=== PATIENT | male | born 1940 | race Caucasian/White ===

== ENCOUNTER 2017-10-30 11:47 | Emergency (ER) | payer OTHER ==
[~2017-10-30 11:47] MED LIST: ASPI-1005 PO; ATEN100T PO; ATOR40TA71 PO; CLOP75TA32 PO; FURO40TA5 PO; GLIP1TAB6 PO; HYDR-309 PO; OMEP20CA10 PO; RANO500T3 PO; SUMA50TA17 PO; VALS1TAB75 PO
[2017-10-30] MEDS ORDERED: IOPAMIDOL-370 100 ML VIAL IV ONE (12:28)
[2017-10-30 12:39] LABS: BASOPHILS % (AUTO) 0.2 % (0.0-5.0); EOSINOPHILS % (AUTO) 0.2 % (0.0-8.0); HEMATOCRIT 38.4 % (42-54); LYMPHOCYTES % (AUTO) 12.3 % (21.0-51.0); MEAN CORPUSCULAR HEMOGLOBIN 33.1 pg (27.0-33.0); MEAN CORPUSCULAR HGB CONC 33.9 g/dL (32.0-36.0); MEAN CORPUSCULAR VOLUME 97.8 fL (79-99); MONOCYTES % (AUTO) 5.2 % (3.0-13.0); NEUTROPHILS % (AUTO) 82.1 % (40.0-77.0); PLATELET COUNT (AUTO) 161 K/uL (130-400); RED BLOOD CELL COUNT(AUTO) 3.93 MIL/uL (4.50-6.20); RED CELL DISTRIBUTION WIDTH 13.4 % (11.0-15.5); WHITE BLOOD COUNT (AUTO) 6.7 K/uL (4.8-10.8)
[2017-10-30 12:50] LABS: CREATININE 1.3 mg/dL (0.5-1.5); POTASSIUM 4.1 mmol/L (3.5-5.1)
[2017-10-30 12:55] LABS: ALBUMIN 3.7 g/dL (3.5-5.0); BILIRUBIN,TOTAL 0.4 mg/dL (0.2-1.0); TOTAL PROTEIN, SERUM 6.5 g/dL (6.0-8.3)
[2017-10-30 13:31] LABS: INR 1.15 (0.85-1.15); PARTIAL THROMBOPLASTIN TIME 29.6 SEC (26.3-35.5)
[2018-01-23] MEDS ORDERED: SPIR25TA4 PO (01:04)
[2018-03-31] MEDS ORDERED: OMEP-272 PO (11:15)
[2018-03-31] MEDS ORDERED: ALPR0.255 PO (11:15)
== END 2017-10-30 14:14 | disposition home or self-care (01) ==
LOC: EDH 11:47
DX: S20.212A Contusion of left front wall of thorax, initial encounter (principal); S30.1XXA Contusion of abdominal wall, initial encounter; I10 Essential (primary) hypertension; Z95.1 Presence of aortocoronary bypass graft; Z95.0 Presence of cardiac pacemaker; W17.89XA Other fall from one level to another, initial encounter; Y93.89 Activity, other specified; Y92.89 Other specified places as the place of occurrence of the external cause; Y99.8 Other external cause status
CPT/HCPCS: 36415; 70450; 71260; 72125; 74177; 80053; 85025; 85610; 85730; 93005; 99285; Q9967

== ENCOUNTER → 2017-11-18 | Outpatient (CLI) | payer OTHER ==
[~2017-11-18] MED LIST changes: +ALPR0.255 PO; +METR500T PO; +OMEP-272 PO; +RIVA20TA PO; +SPIR25TA4 PO; +TAMS-1 PO; +[UNRECOGNIZED DRUG - OTHER] PO
== END | disposition home or self-care (01) ==
LOC: RAH 13:09
PROVIDERS: ATTEND Family Medicine
DX: S09.90XA Unspecified injury of head, initial encounter (principal); G31.9 Degenerative disease of nervous system, unspecified; X58.XXXA Exposure to other specified factors, initial encounter; Y93.89 Activity, other specified; Y92.89 Other specified places as the place of occurrence of the external cause; Y99.8 Other external cause status
CPT/HCPCS: 70450

== ENCOUNTER 2018-01-22 12:35 | Observation (INO) | payer OTHER ==
[~2018-01-22] VITALS: Ht 175.3 cm; Wt 98.0 kg
[~2018-01-22 12:35] MED LIST changes: -ALPR0.255 PO; -METR500T PO; -OMEP-272 PO; -RIVA20TA PO; -SPIR25TA4 PO; -TAMS-1 PO; -[UNRECOGNIZED DRUG - OTHER] PO
[2018-01-22 13:27] LABS: BASOPHILS % (AUTO) 0.2 % (0.0-5.0); EOSINOPHILS % (AUTO) 0.3 % (0.0-8.0); HEMATOCRIT 33.3 % (42-54); LYMPHOCYTES % (AUTO) 8.3 % (21.0-51.0); MEAN CORPUSCULAR HEMOGLOBIN 35.7 pg (27.0-33.0); MEAN CORPUSCULAR VOLUME 99.2 fL (79-99); MONOCYTES % (AUTO) 11.6 % (3.0-13.0); NEUTROPHILS % (AUTO) 79.6 % (40.0-77.0); NUCLEATED RED BLOOD CELLS 0.1 % (0.0-0.19); PLATELET COUNT (AUTO) 157 K/uL (130-400); RED BLOOD CELL COUNT(AUTO) 3.35 MIL/uL (4.50-6.20); RED CELL DISTRIBUTION WIDTH 14.3 % (11.0-15.5); WHITE BLOOD COUNT (AUTO) 8.8 K/uL (4.8-10.8)
[2018-01-22] MEDS ORDERED: DIATR MEGLU/DIATRIZOATE SODIUM 30 ML BOTTLE ONE (13:27)
[2018-01-22 13:39] LABS: POTASSIUM 4.5 mmol/L (3.5-5.1)
[2018-01-22 13:44] LABS: ALBUMIN 3.5 g/dL (3.5-5.0); BILIRUBIN,TOTAL 0.6 mg/dL (0.2-1.0); TOTAL PROTEIN, SERUM 6.8 g/dL (6.0-8.3)
[2018-01-22 13:57] LABS: INR 1.11 (0.85-1.15); PARTIAL THROMBOPLASTIN TIME 30.3 SEC (26.3-35.5); PROTHROMBIN TIME 11.4 SEC (9.6-11.6)
[2018-01-22 13:58] LABS: B-TYPE NATRIURETIC PEPTIDE 422 pg/mL (0-100)
[2018-01-22] MEDS ORDERED: MAG HYDROX/AL HYDROX/SIMETH ES 30 ML SUSP UDCUP PO PRN (14:15)
[2018-01-22] MEDS ORDERED: POTASSIUM CHLORIDE 20MEQ/100ML 100 ML IV PRN (14:15)
[2018-01-22] MEDS ORDERED: HYDRALAZINE HCL 20 MG/ML VIAL IV PRN (14:15)
[2018-01-22] MEDS ORDERED: MORPHINE SULFATE 4 MG/1ML SYG IV PRN (14:15)
[2018-01-22] MEDS ORDERED: POTASSIUM CHLORIDE 20 MEQ ERTAB PO PRN (14:15)
[2018-01-22] MEDS ORDERED: LIDOCAINE HCL-MPF 1% 2ML VIAL IVP PRN (14:15)
[2018-01-22] MEDS ORDERED: MORPHINE SULFATE 2 MG/ML 1ML SYG IV PRN (14:15)
[2018-01-22] MEDS ORDERED: NITROGLYCERIN 0.4 MG SL TAB SL PRN (14:15)
[2018-01-22] MEDS ORDERED: ACETAMINOPHEN 325 MG TAB PO PRN ×2 (14:15)
[2018-01-22] MEDS ORDERED: ONDANSETRON HCL 4 MG/2 ML VIAL IV PRN (14:15)
[2018-01-22] MEDS ORDERED: POTASSIUM CHLORIDE 10% ELIXIR 20 MEQ/15 ML UDCUP PO PRN (14:15)
[2018-01-22] MEDS ORDERED: ACETAMINOPHEN-CODEINE 300/30MG TAB PO PRN ×2 (14:15)
[2018-01-22] MEDS ORDERED: GUAIFENESIN-DM 200/20 MG 10 ML PO PRN (14:15)
[2018-01-22] MEDS ORDERED: LACTULOSE 20 GM/30 ML UDCUP PO PRN (14:15)
[2018-01-22 14:44] LABS: AMYLASE 32 U/L (25-115); LIPASE 119 U/L (114-286)
[2018-01-22 16:00] VITALS: BP 129/82
[2018-01-22] MEDS: INSULIN HUMULIN R 100 UNIT/ML 3ML SQ SCH ×2 (16:30→20:38)
[2018-01-22] MEDS ORDERED: SODIUM CHLORIDE 0.9% 1000ML 1,000 ML IV ONE (18:57)
[2018-01-22] MEDS: SIMETHICONE 80 MG TAB.CHEW PO SCH ×2 (19:01→20:38)
[2018-01-22] MEDS: METRONIDAZOLE 500MG/100ML BAG 100 ML IV SCH ×2 (19:01→19:51)
[2018-01-22] MEDS: LEVOFLOXACIN 500 MG/D5W 100 ML 100 ML IV SCH (19:01)
[2018-01-22 19:05] VITALS: BP 144/91
[2018-01-22] MEDS: FAMOTIDINE 20MG TAB 20 MG TAB PO SCH (20:38)
[2018-01-22] MEDS: RANOLAZINE 500 MG TAB.SR.12H PO SCH (20:38)
[2018-01-22 23:10] VITALS: BP 142/83
[2018-01-23] MEDS ORDERED: TAMS-1 PO (01:01)
[2018-01-23] MEDS ORDERED: SPIR25TA6 PO (01:04)
[2018-01-23] MEDS ORDERED: RIVA20TA PO (01:04)
[2018-01-23] MEDS ORDERED: [UNRECOGNIZED DRUG - OTHER] PO (01:04)
[2018-01-23 03:10] VITALS: BP 121/71
[2018-01-23] MEDS: INSULIN HUMULIN R 100 UNIT/ML 3ML SQ SCH ×4 (06:22→21:00)
[2018-01-23] MEDS: METRONIDAZOLE 500MG/100ML BAG 100 ML IV SCH ×3 (06:48→22:13)
[2018-01-23 08:00] VITALS: BP 140/87
[2018-01-23] MEDS ORDERED: CLOPIDOGREL BISULFATE 75 MG TAB PO SCH (09:00)
[2018-01-23] MEDS: RANOLAZINE 500 MG TAB.SR.12H PO SCH ×2 (09:03→20:23)
[2018-01-23] MEDS: SIMETHICONE 80 MG TAB.CHEW PO SCH ×4 (09:03→20:23)
[2018-01-23] MEDS: FAMOTIDINE 20MG TAB 20 MG TAB PO SCH ×2 (09:03→20:23)
[2018-01-23] MEDS: ASPIRIN 81MG TAB.CHEW PO SCH (09:03)
[2018-01-23 09:28] LABS: APPEARANCE,URINE Clear (CLEAR); BILIRUBIN,URINE Negative (NEGATIVE); COLOR,URINE Yellow (YELLOW); GLUCOSE, URINE (UA) 250 mg/dL (NEGATIVE); KETONES,URINE Trace mg/dL (NEGATIVE); LEUKOCYTE ESTERASE ,URINE Negative (NEGATIVE); NITRATE,URINE Negative (NEGATIVE); OCCULT BLOOD,URINE Negative (NEGATIVE); PROTEIN,URINE Trace (NEGATIVE); UROBILINOGEN,URINE 0.2 mg/dL (0.2-1.0)
[2018-01-23 09:41] LABS: BACTERIA,URINE Rare /HPF (None Seen); RBC,URINE 0-1 /HPF (0-1); SQUAMOUS EPITHELIAL CELL,UR Rare /HPF (0-2); WBC,URINE 0-1 /HPF (0-1)
[2018-01-23 10:07] LABS: HEMATOCRIT 33.9 % (42-54); MEAN CORPUSCULAR HEMOGLOBIN 34.1 pg (27.0-33.0); MEAN CORPUSCULAR HGB CONC 34.4 g/dL (32.0-36.0); MEAN CORPUSCULAR VOLUME 99.1 fL (79-99); PLATELET COUNT (AUTO) 129 K/uL (130-400); RED BLOOD CELL COUNT(AUTO) 3.43 MIL/uL (4.50-6.20); RED CELL DISTRIBUTION WIDTH 14.1 % (11.0-15.5); WHITE BLOOD COUNT (AUTO) 7.7 K/uL (4.8-10.8)
[2018-01-23] MEDS ORDERED: SUMATRIPTAN SUCCINATE 25 MG TABLET PO PRN (10:45)
[2018-01-23 12:00] VITALS: BP 143/77
[2018-01-23] MEDS: LEVOFLOXACIN 500 MG/D5W 100 ML 100 ML IV SCH (15:09)
[2018-01-23 16:00] VITALS: BP 155/81
[2018-01-23 19:45] VITALS: BP 141/90
[2018-01-23] MEDS: ATENOLOL 50 MG TABLET PO SCH (20:22)
[2018-01-23] MEDS: GLIPIZIDE 5 MG TABLET PO SCH (20:23)
[2018-01-23] MEDS: METFORMIN HCL 500 MG TABLET PO SCH (20:23)
[2018-01-23] MEDS: SPIRONOLACTONE 25 MG TAB PO SCH (20:23)
[2018-01-23] MEDS ORDERED: ATORVASTATIN CALCIUM 40 MG TABLET PO SCH (21:00)
[2018-01-23 23:30] VITALS: BP 134/82
[2018-01-24 03:59] VITALS: BP 128/82
[2018-01-24] MEDS: METRONIDAZOLE 500MG/100ML BAG 100 ML IV SCH (05:17)
[2018-01-24] MEDS: INSULIN HUMULIN R 100 UNIT/ML 3ML SQ SCH (06:26)
[2018-01-24 08:00] VITALS: BP 139/88
[2018-01-24] MEDS ORDERED: [UNRECOGNIZED DRUG - OTHER] PO SCH (08:00)
[2018-01-24] MEDS: GLIPIZIDE 5 MG TABLET PO SCH (08:59)
[2018-01-24] MEDS ORDERED: TAMSULOSIN HCL 0.4 MG CAP.ER.24H PO SCH (09:00)
[2018-01-24] MEDS ORDERED: FUROSEMIDE 40 MG TABLET PO SCH (09:00)
[2018-01-24] MEDS ORDERED: RIVAROXABAN 20 MG TABLET PO SCH (09:00)
[2018-01-24 09:01] VITALS: BP 139/88
[2018-01-24] MEDS: ATENOLOL 50 MG TABLET PO SCH (09:01)
[2018-01-24] MEDS: METFORMIN HCL 500 MG TABLET PO SCH (09:02)
[2018-01-24] MEDS: SPIRONOLACTONE 25 MG TAB PO SCH (09:02)
[2018-01-24] MEDS: SIMETHICONE 80 MG TAB.CHEW PO SCH (09:02)
[2018-01-24] MEDS: RANOLAZINE 500 MG TAB.SR.12H PO SCH (09:02)
[2018-01-24] MEDS: FAMOTIDINE 20MG TAB 20 MG TAB PO SCH (09:02)
[2018-01-24] MEDS: ASPIRIN 81MG TAB.CHEW PO SCH (09:02)
[2018-01-24] MEDS ORDERED: METR500T PO (09:53)
[2018-03-31] MEDS ORDERED: OMEP-272 PO (11:15)
[2018-03-31] MEDS ORDERED: ALPR0.255 PO (11:15)
== END 2018-01-24 12:15 | disposition home or self-care (01) ==
LOC: EDH 12:35 → EDHIP 13:08 → 3BH 14:38
PROVIDERS: ADMIT Internal Medicine; ATTEND Internal Medicine
DX: R19.7 Diarrhea, unspecified (principal); I25.5 Ischemic cardiomyopathy; I48.2 Chronic atrial fibrillation; E78.5 Hyperlipidemia, unspecified; E11.9 Type 2 diabetes mellitus without complications; I11.0 Hypertensive heart disease with heart failure; I50.9 Heart failure, unspecified; I25.10 Atherosclerotic heart disease of native coronary artery without angina pectoris; K21.9 Gastro-esophageal reflux disease without esophagitis; Z87.442 Personal history of urinary calculi; Z95.1 Presence of aortocoronary bypass graft; Z95.810 Presence of automatic (implantable) cardiac defibrillator; Z79.01 Long term (current) use of anticoagulants; Z82.49 Family history of ischemic heart disease and other diseases of the circulatory system; Z83.3 Family history of diabetes mellitus
CPT/HCPCS: 36415 ×2; 71045; 74176; 80053; 81001; 82150; 82948 ×8; 83690; 83880; 85025; 85027; 85610; 85730; 87507; 93005; 96365; 96366 ×3; 96368; 96375; 97161; 99285; G0378 ×47; G8978; G8979; G8980; G8981; G8982; G8983; J1815; J1956 ×2; J2270; J3490 ×5; J7030; Q9963

== ENCOUNTER → 2018-03-23 | Outpatient (CLI) | payer OTHER ==
[~2018-03-23] MED LIST changes: +ALPR0.255 PO; -CLOP75TA32 PO; +METR500T PO; +OMEP-272 PO; -OMEP20CA10 PO; +RIVA20TA PO; +SPIR25TA6 PO; +TAMS-1 PO; -VALS1TAB75 PO; +[UNRECOGNIZED DRUG - OTHER] PO
== END | disposition home or self-care (01) ==
LOC: SLP 20:40
PROVIDERS: ATTEND Internal Medicine Cardiovascular Disease
DX: G47.33 Obstructive sleep apnea (adult) (pediatric) (principal)
CPT/HCPCS: 95810

== ENCOUNTER 2018-04-01 07:53 | Day surgery (SDC) | payer OTHER ==
[~2018-04-01] VITALS: Ht 175.3 cm; Wt 93.2 kg
[~2018-04-01 07:53] MED LIST changes: -ASPI-1005 PO; -METR500T PO; +SODIUM CHLORIDE 0.9% 1000ML 1,000 ML IV ONE; -[UNRECOGNIZED DRUG - OTHER] PO
[2018-04-01 08:54] VITALS: BP 138/85
[2018-04-01 11:42] VITALS: BP 129/85
== END 2018-04-01 12:30 | disposition home or self-care (01) ==
LOC: DAH 07:53 → ENDO 07:53
PROVIDERS: ATTEND Internal Medicine Gastroenterology
DX: D12.2 Benign neoplasm of ascending colon (principal); K57.30 Diverticulosis of large intestine without perforation or abscess without bleeding; K56.2 Volvulus; K64.1 Second degree hemorrhoids; K21.0 Gastro-esophageal reflux disease with esophagitis; Z86.010 Personal history of colon polyps; I25.10 Atherosclerotic heart disease of native coronary artery without angina pectoris; Z68.41 Body mass index [BMI] 40.0-44.9, adult; E78.5 Hyperlipidemia, unspecified; I10 Essential (primary) hypertension; N40.0 Benign prostatic hyperplasia without lower urinary tract symptoms; E11.9 Type 2 diabetes mellitus without complications; Z95.0 Presence of cardiac pacemaker; Z79.84 Long term (current) use of oral hypoglycemic drugs; Z79.899 Other long term (current) drug therapy
CPT/HCPCS: 43239; 45385; 82948 ×2; 88305; 88312; 93005; A4606; J7030

== ENCOUNTER → 2018-04-13 | Outpatient (CLI) | payer OTHER ==
[~2018-04-13] MED LIST changes: -SODIUM CHLORIDE 0.9% 1000ML 1,000 ML IV ONE
== END | disposition home or self-care (01) ==
LOC: SLP 20:45
PROVIDERS: ATTEND Internal Medicine Cardiovascular Disease
DX: G47.33 Obstructive sleep apnea (adult) (pediatric) (principal)
CPT/HCPCS: 95811

== ENCOUNTER → 2018-06-30 | Outpatient (CLI) | payer OTHER | END | disposition home or self-care (01) | LOC: SHCH 07:56 | PROVIDERS: ATTEND Internal Medicine Cardiovascular Disease | DX: K55.059 Acute (reversible) ischemia of intestine, part and extent unspecified (principal); N40.0 Benign prostatic hyperplasia without lower urinary tract symptoms; Z72.89 Other problems related to lifestyle; E11.9 Type 2 diabetes mellitus without complications; I11.0 Hypertensive heart disease with heart failure; I50.9 Heart failure, unspecified; E78.5 Hyperlipidemia, unspecified | CPT/HCPCS: 93975 ==

== ENCOUNTER → 2018-10-01 | Outpatient (CLI) | payer OTHER ==
[~2018-10-01] MED LIST changes: -HYDR-309 PO; +HYDR-4457 PO
== END | disposition home or self-care (01) ==
LOC: RAH 09:26
PROVIDERS: ATTEND Internal Medicine Gastroenterology
DX: N28.1 Cyst of kidney, acquired (principal); Z72.89 Other problems related to lifestyle
CPT/HCPCS: 76700; 78264; A9541

== ENCOUNTER → 2019-01-08 | Outpatient (CLI) | payer OTHER ==
[2019-01-08 12:19] LABS: CREATININE 1.1 mg/dL (0.5-1.5)
== END | disposition home or self-care (01) ==
LOC: RAH 10:08
PROVIDERS: ATTEND Internal Medicine Gastroenterology
DX: R10.13 Epigastric pain (principal); R11.0 Nausea
CPT/HCPCS: 36415; 74240; 82565; 84520

== ENCOUNTER → 2019-01-15 | Outpatient (CLI) | payer OTHER ==
[~2019-01-15] MED LIST changes: +IOHEXOL-350 50ML VIAL IV ONE
== END | disposition home or self-care (01) ==
LOC: RAH 08:48
PROVIDERS: ATTEND Internal Medicine Gastroenterology
DX: N28.1 Cyst of kidney, acquired (principal); N20.0 Calculus of kidney; K57.30 Diverticulosis of large intestine without perforation or abscess without bleeding; K40.90 Unilateral inguinal hernia, without obstruction or gangrene, not specified as recurrent; I51.7 Cardiomegaly; Z95.0 Presence of cardiac pacemaker
CPT/HCPCS: 74178; Q9967

== ENCOUNTER → 2019-03-09 | Outpatient (CLI) | payer OTHER ==
[~2019-03-09] MED LIST changes: +IOHEXOL 350 MG/ML 100ML INFUS..BTL IV ONE; -IOHEXOL-350 50ML VIAL IV ONE
== END | disposition home or self-care (01) ==
LOC: RAH 08:29
PROVIDERS: ATTEND Internal Medicine Cardiovascular Disease
DX: K80.20 Calculus of gallbladder without cholecystitis without obstruction (principal); N20.0 Calculus of kidney; K40.90 Unilateral inguinal hernia, without obstruction or gangrene, not specified as recurrent; K57.90 Diverticulosis of intestine, part unspecified, without perforation or abscess without bleeding; M51.35 Other intervertebral disc degeneration, thoracolumbar region; K42.9 Umbilical hernia without obstruction or gangrene; I51.7 Cardiomegaly; N28.1 Cyst of kidney, acquired; M47.815 Spondylosis without myelopathy or radiculopathy, thoracolumbar region; I25.10 Atherosclerotic heart disease of native coronary artery without angina pectoris; I25.5 Ischemic cardiomyopathy; Z95.5 Presence of coronary angioplasty implant and graft
CPT/HCPCS: 74174; Q9967

== ENCOUNTER → 2019-07-05 | Outpatient (CLI) | payer OTHER ==
[~2019-07-05] MED LIST changes: -IOHEXOL 350 MG/ML 100ML INFUS..BTL IV ONE
== END | disposition home or self-care (01) ==
LOC: RAH 13:26
PROVIDERS: ATTEND Family Medicine
DX: G31.89 Other specified degenerative diseases of nervous system (principal)
CPT/HCPCS: 70450

== ENCOUNTER → 2019-11-16 | Outpatient (CLI) | payer OTHER | END | disposition home or self-care (01) | LOC: SHCH 14:44 | PROVIDERS: ATTEND Internal Medicine Cardiovascular Disease | DX: I08.3 Combined rheumatic disorders of mitral, aortic and tricuspid valves (principal); I10 Essential (primary) hypertension | CPT/HCPCS: 93306; 93356 ==

== ENCOUNTER → 2019-12-20 | Outpatient (CLI) | payer OTHER | END | disposition home or self-care (01) | LOC: RAH 13:11 | PROVIDERS: ATTEND Physical Medicine & Rehabilitation | DX: M47.816 Spondylosis without myelopathy or radiculopathy, lumbar region (principal); M25.78 Osteophyte, vertebrae; I70.90 Unspecified atherosclerosis | CPT/HCPCS: 72131 ==

== ENCOUNTER 2019-12-26 17:53 | Emergency (ER) | payer OTHER ==
[~2019-12-26] VITALS: Ht 175.3 cm; Wt 89.4 kg
[2019-12-26] MEDS ORDERED: SODIUM CHLORIDE 0.9% 500ML 500 ML IV ONE (18:35)
[2019-12-26] MEDS ORDERED: PROCHLORPERAZINE EDISYLATE 10 MG/2 ML VIAL ONE (18:35)
[2019-12-26] MEDS ORDERED: DiphenhydrAMINE HCL 50 MG/ML VIAL ONE (18:35)
[2019-12-26 19:26] LABS: BASOPHILS % (AUTO) 0.3 % (0.0-5.0); EOSINOPHILS % (AUTO) 0.8 % (0.0-8.0); HEMATOCRIT 38.8 % (42-54); LYMPHOCYTES % (AUTO) 12.1 % (21.0-51.0); MEAN CORPUSCULAR HEMOGLOBIN 32.9 pg (27.0-33.0); MEAN CORPUSCULAR HGB CONC 33.2 g/dL (32.0-36.0); MONOCYTES % (AUTO) 8.5 % (3.0-13.0); NEUTROPHILS % (AUTO) 77.9 % (40.0-77.0); PLATELET COUNT (AUTO) 156 K/uL (130-400); RED BLOOD CELL COUNT(AUTO) 3.92 MIL/uL (4.50-6.20); RED CELL DISTRIBUTION WIDTH 13.3 % (11.0-15.5); WHITE BLOOD COUNT (AUTO) 7.1 K/uL (4.8-10.8)
[2019-12-26 19:37] LABS: CREATININE 1.1 mg/dL (0.5-1.5); POTASSIUM 4.3 mmol/L (3.5-5.1)
[2019-12-26 19:41] LABS: ALBUMIN 3.6 g/dL (3.5-5.0); BILIRUBIN,TOTAL 0.3 mg/dL (0.2-1.0); TOTAL PROTEIN, SERUM 6.6 g/dL (6.0-8.3)
[2019-12-26] MEDS ORDERED: VALPROIC ACID (AS SODIUM SALT) 500 MG in SODIUM CHLORIDE 0.9% 100 ML IV SCH (20:30)
== END 2019-12-26 21:52 | disposition home or self-care (01) ==
LOC: EDH 17:53
DX: G44.009 Cluster headache syndrome, unspecified, not intractable (principal); I10 Essential (primary) hypertension; Z90.49 Acquired absence of other specified parts of digestive tract; Z95.0 Presence of cardiac pacemaker
CPT/HCPCS: 36415; 70450; 80053; 85025; 96365; 96375; 99284; J0780; J1200; J7040

== ENCOUNTER 2020-10-04 08:00 | Day surgery (SDC) | payer OTHER ==
[2020-09-28 12:29] LABS: APPEARANCE,URINE Clear (CLEAR); BILIRUBIN,URINE Negative (NEGATIVE); COLOR,URINE Yellow (YELLOW); GLUCOSE, URINE (UA) TRACE mg/dL (NEGATIVE); KETONES,URINE Negative (NEGATIVE); LEUKOCYTE ESTERASE ,URINE Negative (NEGATIVE); NITRATE,URINE Negative (NEGATIVE); OCCULT BLOOD,URINE Negative (NEGATIVE); PROTEIN,URINE Negative (NEGATIVE); UROBILINOGEN,URINE 0.2 mg/dL (0.2-1.0)
[2020-09-28 12:30] LABS: BASOPHILS % (AUTO) 0.1 % (0.0-5.0); EOSINOPHILS % (AUTO) 1.5 % (0.0-8.0); HEMATOCRIT 40.8 % (42-54); LYMPHOCYTES % (AUTO) 14.7 % (21.0-51.0); MEAN CORPUSCULAR HEMOGLOBIN 32.4 pg (27.0-33.0); MEAN CORPUSCULAR HGB CONC 32.6 g/dL (32.0-36.0); MEAN CORPUSCULAR VOLUME 99.3 fL (79-99); MONOCYTES % (AUTO) 9.7 % (3.0-13.0); NEUTROPHILS % (AUTO) 73.9 % (40.0-77.0); PLATELET COUNT (AUTO) 179 K/uL (130-400); RED BLOOD CELL COUNT(AUTO) 4.11 MIL/uL (4.50-6.20); WHITE BLOOD COUNT (AUTO) 6.7 K/uL (4.8-10.8)
[2020-09-28 12:36] LABS: BACTERIA,URINE Rare /HPF (None Seen); RBC,URINE 0-1 /HPF (0-1); SQUAMOUS EPITHELIAL CELL,UR Rare /HPF (0-2); WBC,URINE 0-1 /HPF (0-1)
[2020-09-28 12:48] LABS: INR 0.92 (0.85-1.15); PARTIAL THROMBOPLASTIN TIME 24.6 SEC (26.3-35.5)
[2020-09-28 12:51] LABS: CREATININE 1.1 mg/dL (0.5-1.5); POTASSIUM 5.4 mmol/L (3.5-5.1)
--- NOTE | 2020-10-02 10:20 | NUR ---
LABS 5.4 POTASSIUM REPORTED TO VINEET OBREGON,NO FURTHER ORDERS GIVEN. INFORMED SUSIE THAT PT TOOK XARELTO THIS AM. PER SUSIE RESCHEDULE [facility] FOR Fri10-04-20 , PT MADE AWARE AND INSTRUCTED TO STOP XARELTO IMMEDIATELY, HE VERBALIZED UNDERSTANDING
[2020-10-04] VITALS (14 sets, daily range): BP systolic 124–165; BP diastolic 75–94
[~2020-10-04] VITALS: Ht 172.7 cm; Wt 90.1 kg
[~2020-10-04 08:00] MED LIST changes: +ACET650T24 PO; -ALPR0.255 PO; -ATOR40TA71 PO; +BUTA-271 PO; -HYDR-4457 PO; +LISI10TA7 PO; -OMEP-272 PO; +ONDA4TAB4 PO; +PANT40TA54 PO; -RANO500T3 PO; +SUMA100T16 PO; -SUMA50TA17 PO; +TRAM100T40 PO
[2020-10-04 09:08] LABS: CREATININE 1.1 mg/dL (0.5-1.5); POTASSIUM 4.9 mmol/L (3.5-5.1)
[2020-10-04] MEDS ORDERED: MEPERIDINE-PF 25 MG/ML SYG ONE ×2 (09:53→10:48)
[2020-10-04] MEDS ORDERED: IOHEXOL-350 50ML VIAL IV ONE (09:53)
[2020-10-04] MEDS ORDERED: IOHEXOL 350 MG/ML 100ML INFUS..BTL IV ONE (09:53)
[2020-10-04] MEDS ORDERED: HEPARIN SODIUM 1000UNIT/ML 10ML VIAL ONE (09:53)
[2020-10-04] MEDS ORDERED: MIDAZOLAM HCL 1 MG/ML 2ML VIAL ONE ×2 (09:53→10:48)
[2020-10-04] MEDS ORDERED: SODIUM BICARB 50MEQ 50ML VIAL 50 ML ONE (09:53)
[2020-10-04] MEDS ORDERED: NITROGLYCERIN 2 MG/VIAL VIAL IV ONE (09:53)
[2020-10-04] MEDS ORDERED: LIDOCAINE HCL 2% 20ML ONE (09:54)
[2020-10-04] MEDS ORDERED: SODIUM CHLORIDE 0.9% 1000ML 1,000 ML IV ONE (09:55)
[2020-10-04] MEDS ORDERED: CLOPIDOGREL BISULFATE 300 MG TAB ONE (11:17)
[2020-10-04] MEDS ORDERED: ASPIRIN 325MG EC TAB 325 MG TABLET.DR PO ONE (11:17)
[2020-10-04] MEDS ORDERED: SODIUM CHLORIDE 0.9% 1000ML 1,000 ML IV SCH (11:30)
[2020-10-04] MEDS ORDERED: DEXTROSE 50%-WATER 50 ML DISP.SYRIN IV PRN (11:30)
[2020-10-04] MEDS ORDERED: ACETAMINOPHEN 325 MG TAB PO PRN (11:30)
[2020-10-04] MEDS ORDERED: INSULIN HUMULIN R 100 UNIT/ML 3ML SQ SCH (11:30)
[2020-10-04] MEDS ORDERED: GLUCAGON 1MG KIT 1 MG ML IM PRN (11:30)
== END 2020-10-04 18:00 | disposition home or self-care (01) ==
LOC: DAH 08:00
PROVIDERS: ATTEND Internal Medicine Cardiovascular Disease
DX: I25.118 Atherosclerotic heart disease of native coronary artery with other forms of angina pectoris (principal); I25.5 Ischemic cardiomyopathy; I11.0 Hypertensive heart disease with heart failure; I50.32 Chronic diastolic (congestive) heart failure; E11.9 Type 2 diabetes mellitus without complications; E78.5 Hyperlipidemia, unspecified; I48.91 Unspecified atrial fibrillation; Z79.01 Long term (current) use of anticoagulants; Z79.899 Other long term (current) drug therapy
CPT/HCPCS: 36415 ×2; 71045; 80048 ×2; 81001; 82948 ×2; 85025; 85347 ×2; 85610; 85730; 93005; 93459; A4215; A4216; A4221; A4222; A4223 ×3; A4606; A4663; C1760; C1769 ×3; C1874; C1887; C1894 ×3; C9600; J1644 ×2; J2175 ×2; J2250 ×2; J3490 ×3; J7030; Q9965; Q9967 ×2; 99156; 99157

== ENCOUNTER → 2021-01-19 | Outpatient (CLI) | payer OTHER ==
[~2021-01-19] MED LIST changes: -LISI10TA7 PO
== END | disposition home or self-care (01) ==
LOC: RAH 14:56
PROVIDERS: ATTEND Physical Medicine & Rehabilitation
DX: M47.896 Other spondylosis, lumbar region (principal); M25.78 Osteophyte, vertebrae; M48.061 Spinal stenosis, lumbar region without neurogenic claudication
CPT/HCPCS: 72110

== ENCOUNTER 2021-12-03 06:48 | Day surgery (SDC) | payer OTHER ==
[2021-11-29 10:23] VITALS: BP 138/71
[2021-11-29 13:52] LABS: BASOPHILS % (AUTO) 0.3 % (0.0-5.0); HEMATOCRIT 40.2 % (42-54); LYMPHOCYTES % (AUTO) 13.6 % (21.0-51.0); MEAN CORPUSCULAR HEMOGLOBIN 32.8 pg (27.0-33.0); MEAN CORPUSCULAR HGB CONC 32.8 g/dL (32.0-36.0); MONOCYTES % (AUTO) 8.2 % (3.0-13.0); NEUTROPHILS % (AUTO) 76.6 % (40.0-77.0); PLATELET COUNT (AUTO) 159 K/uL (130-400); RED BLOOD CELL COUNT(AUTO) 4.02 MIL/uL (4.50-6.20); RED CELL DISTRIBUTION WIDTH 14.9 % (11.0-15.5); WHITE BLOOD COUNT (AUTO) 7.2 K/uL (4.8-10.8)
[2021-11-29 14:03] LABS: INR 1.09 (0.85-1.15); PROTHROMBIN TIME 11.8 SEC (9.6-11.6)
[2021-11-29 14:04] LABS: PARTIAL THROMBOPLASTIN TIME 28.9 SEC (26.3-35.5)
[2021-11-29 14:07] LABS: CREATININE 1.1 mg/dL (0.5-1.5); POTASSIUM 5.5 mmol/L (3.5-5.1)
[~2021-12-03] VITALS: Ht 175.3 cm; Wt 89.9 kg
[2021-12-03] VITALS (11 sets, daily range): BP systolic 122–141; BP diastolic 74–89
[~2021-12-03 06:48] MED LIST changes: +0.9%NACL 1000ML 1,000 ML IV SCH; -ACET650T24 PO; +ATOR20TA PO; -BUTA-271 PO; +CLOP75TA14 PO; +DULO20CA18 PO; +FURO20TA4 PO; -ONDA4TAB4 PO; +SACU1TAB PO; +SACU1TAB7 PO; -SUMA100T16 PO; -TRAM100T40 PO
[2021-12-03] MEDS ORDERED: SENN-107 PO (07:41)
[2021-12-03] MEDS ORDERED: SACUBITRIL/VALSARTAN 1 EACH TABLET PO SCH (08:00)
[2021-12-03] MEDS ORDERED: ATENOLOL 50 MG TABLET PO SCH (08:00)
[2021-12-03] MEDS ORDERED: MIDAZOLAM HCL 1 MG/ML 2ML VIAL ONE (10:14)
[2021-12-03] MEDS ORDERED: BUPIVACAINE/PF 0.25% 30ML VIAL IJ ONE (10:14)
[2021-12-03] MEDS ORDERED: CEFAZOLIN SODIUM 1 GM VIAL ONE ×2 (10:14→14:36)
[2021-12-03] MEDS ORDERED: LIDOCAINE HCL 1% MDV 50ML VIAL ONE (10:15)
[2021-12-03] MEDS ORDERED: MEPERIDINE-PF 50 MG/ML SYG ONE (10:15)
[2021-12-03] MEDS ORDERED: ACETAMINOPHEN 325 MG TAB PO PRN ×2 (12:00)
[2021-12-03] MEDS ORDERED: DEXTROSE 50%-WATER 50 ML DISP.SYRIN IV PRN (12:00)
[2021-12-03] MEDS ORDERED: INSULIN HUMULIN R 100 UNIT/ML 3ML SQ SCH (16:30)
[2021-12-03] MEDS ORDERED: CEFAZOLIN SODIUM 1 GM VIAL IVP SCH (17:00)
== END 2021-12-03 17:00 | disposition home or self-care (01) ==
LOC: DAH 06:48
PROVIDERS: ATTEND Internal Medicine Cardiovascular Disease
DX: Z45.02 Encounter for adjustment and management of automatic implantable cardiac defibrillator (principal); I48.20 Chronic atrial fibrillation, unspecified; I42.9 Cardiomyopathy, unspecified; I10 Essential (primary) hypertension; E78.5 Hyperlipidemia, unspecified; G47.33 Obstructive sleep apnea (adult) (pediatric); E11.9 Type 2 diabetes mellitus without complications; Z95.5 Presence of coronary angioplasty implant and graft; Z90.49 Acquired absence of other specified parts of digestive tract; Z98.890 Other specified postprocedural states; Z79.01 Long term (current) use of anticoagulants; Z82.49 Family history of ischemic heart disease and other diseases of the circulatory system; Z79.899 Other long term (current) drug therapy; Z72.89 Other problems related to lifestyle
CPT/HCPCS: 33264; 36415 ×2; 80048; 82948 ×2; 84132; 85025; 85610; 85730; 93005; A4215; A4216; A4221; A4222; A4223 ×3; A4606; A4663; C1882; J0690 ×2; J2175; J2250; J3490 ×2; 99156; 99157

== ENCOUNTER 2022-07-08 14:59 | Emergency (ER) | payer OTHER ==
[~2022-07-08] VITALS: Ht 175.3 cm; Wt 81.6 kg
[~2022-07-08 14:59] MED LIST changes: -0.9%NACL 1000ML 1,000 ML IV SCH; -SACU1TAB PO; +SENN-107 PO
[2022-07-08 15:53] LABS: BASOPHILS % (AUTO) 0.1 % (0.0-5.0); EOSINOPHILS % (AUTO) 0.4 % (0.0-8.0); HEMATOCRIT 32.7 % (42-54); LYMPHOCYTES % (AUTO) 6.4 % (21.0-51.0); MEAN CORPUSCULAR HEMOGLOBIN 32.1 pg (27.0-33.0); MEAN CORPUSCULAR HGB CONC 32.4 g/dL (32.0-36.0); MEAN CORPUSCULAR VOLUME 99.1 fL (79-99); NEUTROPHILS % (AUTO) 85.7 % (40.0-77.0); PLATELET COUNT (AUTO) 164 K/uL (130-400); RED CELL DISTRIBUTION WIDTH 13.8 % (11.0-15.5); WHITE BLOOD COUNT (AUTO) 7.2 K/uL (4.8-10.8)
[2022-07-08 16:02] LABS: CREATININE 1.3 mg/dL (0.5-1.5)
[2022-07-08 16:11] LABS: ALBUMIN 3.5 g/dL (3.5-5.0); TOTAL PROTEIN, SERUM 6.9 g/dL (6.0-8.3)
[2022-07-08] MEDS ORDERED: KETOROLAC 30MG VIAL (30MG/ML) ONE (16:19)
[2022-07-08 16:29] LABS: APPEARANCE,URINE CLEAR (CLEAR); BILIRUBIN,URINE NEGATIVE (NEGATIVE); COLOR,URINE YELLOW (YELLOW); GLUCOSE, URINE (UA) NEGATIVE (NEGATIVE); KETONES,URINE 5 mg/dL (NEGATIVE); LEUKOCYTE ESTERASE ,URINE NEGATIVE Leu/uL (NEGATIVE); NITRATE,URINE NEGATIVE (NEGATIVE); OCCULT BLOOD,URINE TRACE-INTACT (NEGATIVE); PROTEIN,URINE NEGATIVE (NEGATIVE); UROBILINOGEN,URINE 0.2 mg/dL (0.2-1.0)
[2022-07-08] MEDS ORDERED: KETOROLAC 30MG VIAL (30MG/ML) IVP ONE (16:30)
[2022-07-08 16:36] LABS: BACTERIA,URINE Rare /HPF (None Seen); SQUAMOUS EPITHELIAL CELL,UR Rare /HPF (0-2); WBC,URINE 0-1 /HPF (0-1)
[2022-07-08 16:37] LABS: OTHER CRYSTALS,URINE SODIUM URATES 1+ /LPF (None Seen); TRANSITIONAL EPI CELLS,URINE Rare /HPF (None Seen)
[2022-07-08] MEDS ORDERED: DEXTROSE 50%-WATER 50 ML DISP.SYRIN IV ONE ×2 (16:55→17:30)
[2022-07-08 17:25] VITALS: BP 116/69
== END 2022-07-08 17:48 | disposition home or self-care (01) ==
LOC: EDH 14:59
DX: D53.9 Nutritional anemia, unspecified (principal); S40.811A Abrasion of right upper arm, initial encounter; E11.649 Type 2 diabetes mellitus with hypoglycemia without coma; E78.00 Pure hypercholesterolemia, unspecified; I10 Essential (primary) hypertension; Z79.02 Long term (current) use of antithrombotics/antiplatelets; Z79.1 Long term (current) use of non-steroidal anti-inflammatories (NSAID); Z79.84 Long term (current) use of oral hypoglycemic drugs; Z79.899 Other long term (current) drug therapy; Z90.49 Acquired absence of other specified parts of digestive tract; Z95.1 Presence of aortocoronary bypass graft; Z95.810 Presence of automatic (implantable) cardiac defibrillator; W18.39XA Other fall on same level, initial encounter; Y93.89 Activity, other specified; Y92.89 Other specified places as the place of occurrence of the external cause; Y99.8 Other external cause status
CPT/HCPCS: 99285; 70450; 96374; 96375; 84484; 80053; 85025; 82948 ×2; 81001; 36415; 72125; 93005; J7070; J1885

== ENCOUNTER 2023-12-24 00:33 | Inpatient (IN) | payer OTHER ==
[~2023-12-24] VITALS: Ht 167.6 cm; Wt 80.7 kg
[~2023-12-24 00:33] MED LIST changes: +CLOP-31 PO; -CLOP75TA14 PO
[2023-12-24] MEDS: HYDROCODONE/ACETAMINOPHEN 5/325 MG TAB PO ONE (01:10)
[2023-12-24] MEDS: METOCLOPRAMIDE 10 MG/2 ML VIAL IVP ONE (01:34)
[2023-12-24] MEDS: MORPHINE 4 MG SYG IVP ONE (01:35)
[2023-12-24 01:40] LABS: HEMATOCRIT 31.3 % (42-54); MEAN CORPUSCULAR HEMOGLOBIN 32.8 pg (27.0-33.0); MEAN CORPUSCULAR HGB CONC 33.5 g/dL (32.0-36.0); MEAN CORPUSCULAR VOLUME 97.8 fL (79-99); RED BLOOD CELL COUNT(AUTO) 3.2 MIL/uL (4.50-6.20); RED CELL DISTRIBUTION WIDTH 13.5 % (11.0-15.5); WHITE BLOOD COUNT (AUTO) 8.5 K/uL (4.8-10.8)
[2023-12-24 01:48] LABS: CREATININE 1.3 mg/dL (0.5-1.5); POTASSIUM 4.1 mmol/L (3.5-5.1)
[2023-12-24] MEDS ORDERED: ACETAMINOPHEN 325 MG TAB PO PRN (03:00)
[2023-12-24] MEDS ORDERED: HYDRALAZINE 20MG/ML VIAL IV PRN (03:00)
[2023-12-24] MEDS ORDERED: ALBUTEROL 0.083% 2.5 MG/3 ML INH IH PRN (03:00)
[2023-12-24] MEDS ORDERED: ONDANSETRON 4MG INJ IVP PRN (03:00)
[2023-12-24] MEDS ORDERED: LACTULOSE 20 GM/30 ML UDCUP PO PRN (03:00)
[2023-12-24] MEDS ORDERED: DOCUSATE SODIUM 100 MG CAP PO PRN (03:00)
[2023-12-24] MEDS ORDERED: ACETAMINOPHEN 650 MG SUPPOSITORY RC PRN (03:00)
[2023-12-24] MEDS ORDERED: TEMAZEPAM 15 MG CAPSULE PO PRN (03:00)
[2023-12-24 03:12] LABS: APPEARANCE,URINE CLOUDY (CLEAR); BILIRUBIN,URINE NEGATIVE (NEGATIVE); GLUCOSE, URINE (UA) NEGATIVE (NEGATIVE); KETONES,URINE 5 mg/dL (NEGATIVE); LEUKOCYTE ESTERASE ,URINE NEGATIVE Leu/uL (NEGATIVE); NITRATE,URINE NEGATIVE (NEGATIVE); OCCULT BLOOD,URINE LARGE (NEGATIVE); PH,URINE 7.5 (5.0-8.0); PROTEIN,URINE 10 mg/dL (NEGATIVE); UROBILINOGEN,URINE 0.2 mg/dL (0.2-1.0)
[2023-12-24 03:16] LABS: ADD UA MICROSCOPIC YES; COLOR,URINE LIGHT-ORANGE (YELLOW)
[2023-12-24 03:19] LABS: RBC,URINE TNTC /HPF (0-1); SQUAMOUS EPITHELIAL CELL,UR RARE /HPF (0-2); WBC,URINE 51-100 /HPF (0-1)
[2023-12-24] MEDS: MORPHINE 4 MG SYG IVP PRN (03:21)
[2023-12-24] MEDS: LACTATED RINGERS 1000ML 1,000 ML IV SCH (03:21)
[2023-12-24 05:02] VITALS: RESP 18; O2SAT 95
[2023-12-24] MEDS ORDERED: METF-526 PO (05:23)
[2023-12-24] MEDS ORDERED: TRAM100T40 PO (05:23)
[2023-12-24] MEDS ORDERED: ATEN100T PO (05:23)
[2023-12-24] MEDS ORDERED: SPIR25TA6 PO (05:23)
[2023-12-24] MEDS ORDERED: OMEP20TA20 PO (05:23)
[2023-12-24] MEDS ORDERED: SUCR1TAB2 PO (05:23)
[2023-12-24] MEDS ORDERED: SIMV-43 PO (05:23)
[2023-12-24] MEDS: TRAMADOL HCL 50 MG TABLET PO PRN (06:35)
[2023-12-24 07:10] VITALS: PULSE 75; RESP 18; O2SAT 97
[2023-12-24] MEDS: INSULIN HUMULIN R 100 UNIT/ML 3ML SQ SCH (07:30)
[2023-12-24] MEDS: FAMOTIDINE 20MG VIAL IV SCH (09:07)
[2023-12-24 09:15] LABS: INR 1.06 (0.85-1.15); PROTHROMBIN TIME 12.3 SEC (9.6-11.6)
[2023-12-24 09:16] LABS: PARTIAL THROMBOPLASTIN TIME 29.7 SEC (26.3-35.5)
[2023-12-24] MEDS ORDERED: ONDANSETRON 4MG INJ IV PRN (10:00)
[2023-12-24] MEDS ORDERED: PHARMACY COMMUNICATION MISC PRN (10:00)
[2023-12-24] MEDS ORDERED: PROMETHAZINE HCL 25 MG TABLET PO PRN (10:00)
[2023-12-24] MEDS ORDERED: HYDROCODONE/ACETAMINOPHEN 5/325 MG TAB PO PRN (10:00)
[2023-12-24] MEDS: HYDROMORPHONE 1 MG INJ IVP PRN (12:55)
[2023-12-24] MEDS: ENOXAPARIN SODIUM 40 MG/0.4 ML SYRINGE SQ SCH (17:12)
[2023-12-24] MEDS: CEFTRIAXONE 2GM VIAL IVPB SCH (17:12)
[2023-12-24 20:13] VITALS: PULSE 72; RESP 18; O2SAT 97
[2023-12-24] MEDS: SACUBITRIL/VALSARTAN 1 EACH TABLET PO SCH (21:01)
[2023-12-24] MEDS: SIMVASTATIN 20 MG TABLET PO SCH (21:01)
[2023-12-24] MEDS: LORAZEPAM 2 MG/ML 1 ML VIAL IVP PRN (21:14)
[2023-12-24] MEDS: CHLORDIAZEPOXIDE HCL 25 MG CAP PO PRN (22:13)
[2023-12-24 22:35] VITALS: BP 138/70; PULSE 74; RESP 18
[2023-12-24 23:38] VITALS: O2SAT 96
[2023-12-25] VITALS (9 sets, daily range): BP systolic 115–157; BP diastolic 59–80; PULSE 63–78; RESP 18–22; O2SAT 97–98
[2023-12-25] MEDS: CHLORDIAZEPOXIDE HCL 25 MG CAP PO PRN (01:21)
[2023-12-25] MEDS: LORAZEPAM 2 MG/ML 1 ML VIAL IVP PRN (01:21)
[2023-12-25 04:50] LABS: BASOPHILS # (AUTO) 0.02 K/uL (0.00-0.20); BASOPHILS % (AUTO) 0.2 % (0.0-5.0); EOSINOPHILS # (AUTO) 0.01 K/uL (0.00-0.70); EOSINOPHILS % (AUTO) 0.1 % (0.0-8.0); HEMATOCRIT 28.8 % (42-54); IMMATURE GRANULOCYTE ABSOLUTE 0.04 K/uL (0-1); LYMPHOCYTES # (AUTO) 0.3 K/uL (1.0-4.8); LYMPHOCYTES % (AUTO) 3.6 % (21.0-51.0); MEAN CORPUSCULAR HEMOGLOBIN 32.7 pg (27.0-33.0); MEAN CORPUSCULAR HGB CONC 32.3 g/dL (32.0-36.0); MEAN CORPUSCULAR VOLUME 101.4 fL (79-99); MONOCYTES # (AUTO) 1.3 K/uL (0.1-1.0); MONOCYTES % (AUTO) 15.1 % (3.0-13.0); NEUTROPHILS # (AUTO) 6.7 K/uL (1.8-7.7); NEUTROPHILS % (AUTO) 80.5 % (40.0-77.0); PLATELET COUNT (AUTO) 144 K/uL (130-400); RED BLOOD CELL COUNT(AUTO) 2.84 MIL/uL (4.50-6.20); RED CELL DISTRIBUTION WIDTH 13.4 % (11.0-15.5); WHITE BLOOD COUNT (AUTO) 8.4 K/uL (4.8-10.8)
[2023-12-25 04:53] LABS: CREATININE 1.2 mg/dL (0.5-1.5); MAGNESIUM 1.9 mg/dL (1.80-2.40); PHOSPHORUS 2.6 mg/dL (2.5-4.9); POTASSIUM 4.1 mmol/L (3.5-5.1)
[2023-12-25] MEDS ORDERED: NON-FORMULARY MEDICATION 1 EACH (Atenolol 100 MG) PO SCH (09:00)
[2023-12-25] MEDS: ATENOLOL 50 MG TABLET PO SCH (09:00)
[2023-12-25] MEDS ORDERED: NON-FORMULARY MEDICATION 1 EACH (Omeprazole 20 MG) PO SCH (09:00)
[2023-12-25] MEDS: PANTOPRAZOLE 40 MG TAB DR PO SCH (09:00)
[2023-12-25] MEDS: FOLIC ACID 1 MG TABLET PO SCH (09:00)
[2023-12-25] MEDS: FUROSEMIDE 20 MG TABLET PO SCH (09:00)
[2023-12-25] MEDS: MULTIVITAMIN TABLET PO SCH (09:00)
[2023-12-25] MEDS: SPIRONOLACTONE 25 MG TAB PO SCH (09:00)
[2023-12-25] MEDS: THIAMINE HCL 100 MG/ML 2ML VIAL IM SCH (11:44)
[2023-12-25 12:17] LABS: ABG BASE EXCESS 0.1 mmol/L (-2.0-3.0); ABG HCO3 23.7 mmol/L (21.0-28.0); ABG OXYGEN SATURATION 97.1 % (95.0-99.0); ABG PCO2 35 mmHg (35-48); ABG PH 7.443 (7.35-7.450); DEVICE COMMENT RBEDDIE; PO2, ARTERIAL BG 88.7 mmHg (83.0-108.0); VENT MODE, BG NC (ROOM AIR)
[2023-12-25] MEDS ORDERED: HYDROMORPHONE 0.5 MG SYG (0.5MG/0.5ML) IVP PRN (14:00)
[2023-12-25] MEDS: ACETAMINOPHEN 500 MG TABLET PO PRN (16:34)
[2023-12-26] VITALS (8 sets, daily range): BP systolic 125–162; BP diastolic 62–77; PULSE 72–76; RESP 20–22; O2SAT 98
[2023-12-26 03:49] LABS: BASOPHILS # (AUTO) 0.01 K/uL (0.00-0.20); BASOPHILS % (AUTO) 0.1 % (0.0-5.0); EOSINOPHILS # (AUTO) 0.02 K/uL (0.00-0.70); EOSINOPHILS % (AUTO) 0.3 % (0.0-8.0); HEMATOCRIT 25.9 % (42-54); IMMATURE GRANULOCYTE ABSOLUTE 0.04 K/uL (0-1); LYMPHOCYTES # (AUTO) 0.3 K/uL (1.0-4.8); LYMPHOCYTES % (AUTO) 3.6 % (21.0-51.0); MEAN CORPUSCULAR HEMOGLOBIN 32.2 pg (27.0-33.0); MEAN CORPUSCULAR HGB CONC 32.4 g/dL (32.0-36.0); MEAN CORPUSCULAR VOLUME 99.2 fL (79-99); MONOCYTES # (AUTO) 1.2 K/uL (0.1-1.0); MONOCYTES % (AUTO) 15.4 % (3.0-13.0); NEUTROPHILS # (AUTO) 6.2 K/uL (1.8-7.7); NEUTROPHILS % (AUTO) 80.1 % (40.0-77.0); PLATELET COUNT (AUTO) 138 K/uL (130-400); RED BLOOD CELL COUNT(AUTO) 2.61 MIL/uL (4.50-6.20); RED CELL DISTRIBUTION WIDTH 13.6 % (11.0-15.5); WHITE BLOOD COUNT (AUTO) 7.7 K/uL (4.8-10.8)
[2023-12-26 04:07] LABS: BILIRUBIN,TOTAL 0.7 mg/dL (0.2-1.0); MAGNESIUM 1.8 mg/dL (1.80-2.40); POTASSIUM 3.6 mmol/L (3.5-5.1); TOTAL PROTEIN, SERUM 5.8 g/dL (6.0-8.3)
[2023-12-26] MEDS ORDERED: POTASSIUM CHLORIDE 10% ELIXIR 20 MEQ/15 ML UDCUP PO PRN (08:30)
[2023-12-26] MEDS ORDERED: POTASSIUM CHLORIDE 20MEQ/100ML 100 ML IV PRN (08:30)
[2023-12-26] MEDS: RIVAROXABAN 20 MG TABLET PO SCH (09:10)
[2023-12-26] MEDS: SACUBITRIL/VALSARTAN 1 EACH TABLET PO SCH (09:15)
[2023-12-26] MEDS: MAGNESIUM 2GM PREMIX 50ML 50 ML IV PRN (09:16)
[2023-12-26] MEDS: KCL 20 MEQ ERTAB PO PRN (11:46)
[2023-12-26 14:05] LABS: HEMATOCRIT 27.2 % (42-54)
[2023-12-26] MEDS: TRAMADOL HCL 50 MG TABLET PO PRN (18:36)
[2023-12-26] MEDS: TAMSULOSIN HCL 0.4 MG CAP.ER.24H PO SCH (21:13)
[2023-12-26] MEDS: CLOPIDOGREL 75MG TAB PO SCH (21:14)
[2023-12-26] MEDS: KETOROLAC 30MG VIAL (30MG/ML) IVP PRN (21:24)
[2023-12-27] VITALS (10 sets, daily range): BP systolic 98–154; BP diastolic 59–85; PULSE 72–78; RESP 16–22; O2SAT 96–97
[2023-12-27 04:12] LABS: BASOPHILS # (AUTO) 0.02 K/uL (0.00-0.20); BASOPHILS % (AUTO) 0.3 % (0.0-5.0); EOSINOPHILS % (AUTO) 1.5 % (0.0-8.0); HEMATOCRIT 27.5 % (42-54); IMMATURE GRANULOCYTE ABSOLUTE 0.04 K/uL (0-1); LYMPHOCYTES # (AUTO) 0.4 K/uL (1.0-4.8); MEAN CORPUSCULAR HEMOGLOBIN 32.2 pg (27.0-33.0); MEAN CORPUSCULAR HGB CONC 32.4 g/dL (32.0-36.0); MEAN CORPUSCULAR VOLUME 99.6 fL (79-99); MONOCYTES # (AUTO) 1.1 K/uL (0.1-1.0); MONOCYTES % (AUTO) 16.7 % (3.0-13.0); NEUTROPHILS % (AUTO) 74.9 % (40.0-77.0); PLATELET COUNT (AUTO) 124 K/uL (130-400); RED BLOOD CELL COUNT(AUTO) 2.76 MIL/uL (4.50-6.20); RED CELL DISTRIBUTION WIDTH 13.5 % (11.0-15.5); WHITE BLOOD COUNT (AUTO) 6.7 K/uL (4.8-10.8)
[2023-12-27 04:24] LABS: CREATININE 1.2 mg/dL (0.5-1.5); POTASSIUM 4.1 mmol/L (3.5-5.1)
[2023-12-27] MEDS: HYDROXYZINE 25 MG TABLET PO ONE (22:24)
[2023-12-28] VITALS (10 sets, daily range): BP systolic 94–145; BP diastolic 55–77; PULSE 69–77; RESP 16–20; O2SAT 96–97
[2023-12-28] MEDS: ALPRAZOLAM 0.25 MG TABLET PO PRN (21:42)
[2023-12-29 02:58] VITALS: BP 119/65; PULSE 77; RESP 16
[2023-12-29 06:54] VITALS: PULSE 77; RESP 18; O2SAT 98
[2023-12-29 07:12] VITALS: O2SAT 98
[2023-12-29 08:05] VITALS: BP 115/65; PULSE 76; RESP 16
[2023-12-29 15:43] VITALS: BP 108/64; PULSE 76; RESP 18
== END 2023-12-29 17:10 | DRG 562 ==
LOC: EDH 00:33 → OBSVTOIN 02:39 → EDHIP 02:39 → 3DH 21:51 → 2AH 12-25 10:34
PROVIDERS: ADMIT Internal Medicine; ATTEND Internal Medicine
DX: S42.292A Other displaced fracture of upper end of left humerus, initial encounter for closed fracture (principal); G92.8 Other toxic encephalopathy; J96.21 Acute and chronic respiratory failure with hypoxia; I13.0 Hypertensive heart and chronic kidney disease with heart failure and stage 1 through stage 4 chronic kidney disease, or unspecified chronic kidney disease; I48.20 Chronic atrial fibrillation, unspecified; E46 Unspecified protein-calorie malnutrition; E11.22 Type 2 diabetes mellitus with diabetic chronic kidney disease; I25.10 Atherosclerotic heart disease of native coronary artery without angina pectoris; I50.9 Heart failure, unspecified; I51.3 Intracardiac thrombosis, not elsewhere classified; N18.9 Chronic kidney disease, unspecified; S51.812A Laceration without foreign body of left forearm, initial encounter; S40.012A Contusion of left shoulder, initial encounter; M41.86 Other forms of scoliosis, lumbar region; D64.9 Anemia, unspecified; E78.5 Hyperlipidemia, unspecified; I25.5 Ischemic cardiomyopathy; W01.0XXA Fall on same level from slipping, tripping and stumbling without subsequent striking against object, initial encounter; Y93.89 Activity, other specified; G47.33 Obstructive sleep apnea (adult) (pediatric); Y92.89 Other specified places as the place of occurrence of the external cause; Y99.8 Other external cause status; Z95.810 Presence of automatic (implantable) cardiac defibrillator; Z79.01 Long term (current) use of anticoagulants; Z79.02 Long term (current) use of antithrombotics/antiplatelets; Z82.49 Family history of ischemic heart disease and other diseases of the circulatory system; Z83.3 Family history of diabetes mellitus; Z85.828 Personal history of other malignant neoplasm of skin; Z87.442 Personal history of urinary calculi; Z95.1 Presence of aortocoronary bypass graft; Z95.5 Presence of coronary angioplasty implant and graft; Z68.28 Body mass index [BMI] 28.0-28.9, adult
CPT/HCPCS: 36415; 36600; 70450; 71045; 72125; 72170; 73030; 73070; 80048; 80053; 81001; 82550; 82803; 82948; 83735; 84100; 85014; 85018; 85025; 85027; 85610; 85730; 87088; 93005; 94664; 96365; 96375; G0378; J0696; J1170; J1650; J1815; J1885; J2060; J2270; J2765; J3411; J3475; J3490; J7120

== ENCOUNTER 2024-02-23 06:04 | Day surgery (SDC) | payer OTHER ==
[2024-02-20 14:34] LABS: BASOPHILS # (AUTO) 0.02 K/uL (0.00-0.20); BASOPHILS % (AUTO) 0.4 % (0.0-5.0); EOSINOPHILS # (AUTO) 0.13 K/uL (0.00-0.70); EOSINOPHILS % (AUTO) 2.3 % (0.0-8.0); HEMATOCRIT 34.9 % (42-54); IMMATURE GRANULOCYTE ABSOLUTE 0.02 K/uL (0-1); LYMPHOCYTES # (AUTO) 0.5 K/uL (1.0-4.8); LYMPHOCYTES % (AUTO) 9.5 % (21.0-51.0); MEAN CORPUSCULAR HEMOGLOBIN 31.9 pg (27.0-33.0); MEAN CORPUSCULAR VOLUME 96.7 fL (79-99); MONOCYTES # (AUTO) 0.7 K/uL (0.1-1.0); MONOCYTES % (AUTO) 12.3 % (3.0-13.0); NEUTROPHILS # (AUTO) 4.3 K/uL (1.8-7.7); NEUTROPHILS % (AUTO) 75.1 % (40.0-77.0); PLATELET COUNT (AUTO) 196 K/uL (130-400); RED BLOOD CELL COUNT(AUTO) 3.61 MIL/uL (4.50-6.20); RED CELL DISTRIBUTION WIDTH 14.6 % (11.0-15.5); WHITE BLOOD COUNT (AUTO) 5.7 K/uL (4.8-10.8)
[2024-02-20 14:42] VITALS: BP 119/71; PULSE 74; RESP 16
[2024-02-20 14:47] LABS: CREATININE 1.4 mg/dL (0.5-1.3); INR 1.27 (0.85-1.15); POTASSIUM 5.6 mmol/L (3.5-5.1); PROTHROMBIN TIME 14.7 SEC (9.6-11.6)
[2024-02-20 14:48] LABS: PARTIAL THROMBOPLASTIN TIME 41.8 SEC (26.3-35.5)
[2024-02-23] VITALS (10 sets, daily range): BP systolic 108–127; BP diastolic 60–73; PULSE 75–89; RESP 14–16
[~2024-02-23] VITALS: Ht 172.7 cm; Wt 79.0 kg
[~2024-02-23 06:04] MED LIST changes: +ACET-2123 PO; -ATOR20TA PO; -DULO20CA18 PO; +FERR-82 PO; -FURO40TA5 PO; -GLIP1TAB6 PO; +METF-526 PO; +OMEP20TA20 PO; -PANT40TA54 PO; -SENN-107 PO; +SIMV-43 PO; +SUCR1TAB2 PO; +TRAM50TA4 PO; +XANAX PO
[2024-02-23 06:35] LABS: CREATININE 1.2 mg/dL (0.5-1.3); POTASSIUM 4.2 mmol/L (3.5-5.1)
[2024-02-23 06:50] LABS: INR <= 0.93 (0.85-1.15); PROTHROMBIN TIME 10.7 SEC (9.6-11.6)
[2024-02-23 06:51] LABS: PARTIAL THROMBOPLASTIN TIME 28.2 SEC (26.3-35.5)
[2024-02-23] MEDS: 0.9%NACL 1000ML 1,000 ML IV ONE (07:13)
[2024-02-23] MEDS ORDERED: MEPERIDINE-PF 25 MG/ML SYG ONE ×3 (07:30→08:08)
[2024-02-23] MEDS ORDERED: BUPIVACAINE/PF 0.25% 30ML VIAL IJ ONE (07:30)
[2024-02-23] MEDS ORDERED: MIDAZOLAM HCL 1 MG/ML 2ML VIAL ONE ×3 (07:30→08:08)
[2024-02-23] MEDS ORDERED: LIDOCAINE HCL 1% MDV 50ML VIAL ONE (07:30)
[2024-02-23] MEDS ORDERED: CEFAZOLIN SODIUM 1 GM VIAL ONE (07:30)
[2024-02-23] MEDS ORDERED: THROMBIN-JMI 5000 UNIT/VIAL TP ONE (08:14)
[2024-02-23] MEDS ORDERED: MORPHINE 4 MG SYG IVP PRN (09:00)
[2024-02-23] MEDS ORDERED: DEXTROSE 50%-WATER 50 ML DISP.SYRIN IV PRN (09:00)
[2024-02-23] MEDS ORDERED: INSULIN HUMULIN R 100 UNIT/ML 3ML SQ SCH (11:30)
[2024-02-23] MEDS: CEFAZOLIN SODIUM 1 GM VIAL IVPB ONE (13:11)
== END 2024-02-23 13:25 | disposition home or self-care (01) ==
LOC: DAH 06:04
PROVIDERS: ATTEND Internal Medicine Cardiovascular Disease
DX: I25.5 Ischemic cardiomyopathy (principal); T82.897A Other specified complication of cardiac prosthetic devices, implants and grafts, initial encounter; I11.0 Hypertensive heart disease with heart failure; I50.9 Heart failure, unspecified; I25.10 Atherosclerotic heart disease of native coronary artery without angina pectoris; E78.00 Pure hypercholesterolemia, unspecified; E11.9 Type 2 diabetes mellitus without complications; F41.9 Anxiety disorder, unspecified; Y83.8 Other surgical procedures as the cause of abnormal reaction of the patient, or of later complication, without mention of misadventure at the time of the procedure; Z72.89 Other problems related to lifestyle; Z79.84 Long term (current) use of oral hypoglycemic drugs; Z79.899 Other long term (current) drug therapy; Z82.49 Family history of ischemic heart disease and other diseases of the circulatory system; Z83.3 Family history of diabetes mellitus; Z82.5 Family history of asthma and other chronic lower respiratory diseases; Z80.3 Family history of malignant neoplasm of breast; Z95.0 Presence of cardiac pacemaker; Z98.890 Other specified postprocedural states
CPT/HCPCS: 80048 ×2; 85025; 85610 ×2; 85730 ×2; 36415 ×2; 93005; 17999; 82948 ×2; J0665; J0690 ×2; J7030; J2250 ×3; J3490 ×2; J2175 ×3; A4215; A4222; A4221; A4663; A4216; A4606; A4223 ×3; 99156; 99157

== ENCOUNTER → 2024-06-11 | Outpatient (CLI) | payer OTHER ==
[~2024-06-11] MED LIST changes: -OMEP20TA20 PO
[2024-06-11 12:25] LABS: BASOPHILS # (AUTO) 0.02 K/uL (0.00-0.20); BASOPHILS % (AUTO) 0.4 % (0.0-5.0); EOSINOPHILS # (AUTO) 0.21 K/uL (0.00-0.70); EOSINOPHILS % (AUTO) 4.2 % (0.0-8.0); HEMATOCRIT 32.5 % (42-54); IMMATURE GRANULOCYTE ABSOLUTE 0.03 K/uL (0-1); LYMPHOCYTES # (AUTO) 0.7 K/uL (1.0-4.8); LYMPHOCYTES % (AUTO) 14.6 % (21.0-51.0); MEAN CORPUSCULAR HEMOGLOBIN 31.4 pg (27.0-33.0); MEAN CORPUSCULAR HGB CONC 32.3 g/dL (32.0-36.0); MEAN CORPUSCULAR VOLUME 97.3 fL (79-99); MONOCYTES # (AUTO) 0.6 K/uL (0.1-1.0); MONOCYTES % (AUTO) 12.6 % (3.0-13.0); NEUTROPHILS # (AUTO) 3.4 K/uL (1.8-7.7); NEUTROPHILS % (AUTO) 67.6 % (40.0-77.0); PLATELET COUNT (AUTO) 161 K/uL (130-400); RED BLOOD CELL COUNT(AUTO) 3.34 MIL/uL (4.50-6.20); RED CELL DISTRIBUTION WIDTH 14.9 % (11.0-15.5)
[2024-06-11 12:53] LABS: ALBUMIN 3.4 g/dL (3.5-5.0); BILIRUBIN,TOTAL 0.6 mg/dL (0.2-1.0); CREATININE 1.2 mg/dL (0.5-1.3); POTASSIUM 4.1 mmol/L (3.5-5.1); T4 (THYROXINE) 5.1 ug/dL (4.7-13.3); THYROID STIMULATING HORMONE 4.06 uIU/mL (0.36-3.74); TOTAL PROTEIN, SERUM 6.6 g/dL (6.0-8.3)
== END | disposition home or self-care (01) ==
LOC: LAB 09:18
PROVIDERS: ATTEND Internal Medicine Cardiovascular Disease
DX: I10 Essential (primary) hypertension (principal)
CPT/HCPCS: 36415; 80053; 80061; 83880; 84436; 84443; 84479; 85025

== ENCOUNTER → 2024-06-15 | Outpatient (CLI) | payer OTHER | END | disposition home or self-care (01) | LOC: RAH 12:50 | PROVIDERS: ATTEND Student in an Organized Health Care Education/Training Program | DX: S42.212A Unspecified displaced fracture of surgical neck of left humerus, initial encounter for closed fracture (principal); M79.89 Other specified soft tissue disorders; X58.XXXA Exposure to other specified factors, initial encounter; Y93.89 Activity, other specified; Y92.89 Other specified places as the place of occurrence of the external cause; Y99.8 Other external cause status | CPT/HCPCS: 73200 ==

== ENCOUNTER → 2024-07-15 | Outpatient (CLI) | payer OTHER | END | disposition home or self-care (01) | LOC: SHCH 11:18 | PROVIDERS: ATTEND Internal Medicine Cardiovascular Disease | DX: I08.8 Other rheumatic multiple valve diseases (principal); I11.9 Hypertensive heart disease without heart failure; I48.91 Unspecified atrial fibrillation; E78.5 Hyperlipidemia, unspecified; E11.9 Type 2 diabetes mellitus without complications; Z95.810 Presence of automatic (implantable) cardiac defibrillator | CPT/HCPCS: 93306; 93356 ==

== ENCOUNTER → 2024-07-23 | Outpatient (CLI) | payer OTHER ==
[2024-07-23] MEDS: REGADENOSON 0.4 MG/5 ML PF SYG IVP SCH (11:08)
== END | disposition home or self-care (01) ==
LOC: RAH 08:10
PROVIDERS: ATTEND Internal Medicine Cardiovascular Disease
DX: Z01.818 Encounter for other preprocedural examination (principal); I10 Essential (primary) hypertension; I45.10 Unspecified right bundle-branch block; Z95.0 Presence of cardiac pacemaker; Z79.899 Other long term (current) drug therapy
CPT/HCPCS: 78452; 93017; J2785; A9500 ×2

== ENCOUNTER → 2024-12-31 | Outpatient (CLI) | payer OTHER ==
[2024-12-31 12:21] LABS: BASOPHILS # (AUTO) 0.03 K/uL (0.00-0.20); BASOPHILS % (AUTO) 0.5 % (0.0-5.0); EOSINOPHILS % (AUTO) 5.4 % (0.0-8.0); HEMATOCRIT 33.9 % (42-54); IMMATURE GRANULOCYTE ABSOLUTE 0.01 K/uL (0-1); LYMPHOCYTES # (AUTO) 0.6 K/uL (1.0-4.8); LYMPHOCYTES % (AUTO) 9.9 % (21.0-51.0); MEAN CORPUSCULAR HEMOGLOBIN 30.4 pg (27.0-33.0); MEAN CORPUSCULAR HGB CONC 31.3 g/dL (32.0-36.0); MEAN CORPUSCULAR VOLUME 97.1 fL (79-99); MONOCYTES # (AUTO) 0.8 K/uL (0.1-1.0); MONOCYTES % (AUTO) 13.5 % (3.0-13.0); NEUTROPHILS # (AUTO) 3.9 K/uL (1.8-7.7); NEUTROPHILS % (AUTO) 70.5 % (40.0-77.0); PLATELET COUNT (AUTO) 205 K/uL (130-400); RED BLOOD CELL COUNT(AUTO) 3.49 MIL/uL (4.50-6.20); RED CELL DISTRIBUTION WIDTH 14.4 % (11.0-15.5); WHITE BLOOD COUNT (AUTO) 5.5 K/uL (4.8-10.8)
[2024-12-31 12:54] LABS: ALBUMIN 3.4 g/dL (3.5-5.0); BILIRUBIN,TOTAL 0.6 mg/dL (0.2-1.0); CREATININE 1.1 mg/dL (0.5-1.3); MAGNESIUM 1.9 mg/dL (1.80-2.40); POTASSIUM 4.1 mmol/L (3.5-5.1); T4 (THYROXINE) 4.6 ug/dL (4.7-13.3); THYROID STIMULATING HORMONE 2.83 uIU/mL (0.36-3.74)
== END | disposition home or self-care (01) ==
LOC: LAB 09:30
PROVIDERS: ATTEND Internal Medicine Cardiovascular Disease
DX: I10 Essential (primary) hypertension (principal)
CPT/HCPCS: 36415; 80053; 80061; 83735; 83880; 84436; 84443; 84479; 85025

== ENCOUNTER → 2025-01-14 | Outpatient (CLI) | payer OTHER ==
--- NOTE | 2025-01-14 16:05 | HMCIMG ---
CT HEAD/BRAIN W/O CONTRAST HISTORY: Headache COMPARISON: None TECHNIQUE: Multiple sequential axial images of the head were obtained from the base of the skull through vertex. Patient was not given contrast through intravenous route. FINDINGS: The ventricles and extraventricular CSF spaces are dilated consistent with cerebral atrophy. Nonspecific white matter changes seen. There is no midline shift, mass effect or herniation. No acute intracranial bleed is seen. Visualized portion of the paranasal sinuses are grossly within normal limits. IMPRESSION: 1. No acute intracranial bleed is seen. 2. Atrophy with white matter changes. CT was performed with one or more following dose reduction techniques: automated exposure control, adjustment of the mA and kv according to patient's size, or use of a iterative reconstruction technique.
== END | disposition home or self-care (01) ==
LOC: RAH 13:29
PROVIDERS: ATTEND Family Medicine
DX: G31.89 Other specified degenerative diseases of nervous system (principal); R90.82 White matter disease, unspecified; G43.909 Migraine, unspecified, not intractable, without status migrainosus; R09.02 Hypoxemia
CPT/HCPCS: 70450

== ENCOUNTER → 2025-01-17 | Outpatient (CLI) | payer OTHER ==
[2025-01-17] MEDS: REGADENOSON 0.4 MG/5 ML PF SYG IVP ONE (13:42)
--- NOTE | 2025-01-19 07:40 | HMCSR ---
APPROVED REPORT Height: 5 ft 7in Weight: 180 lbs TEST INDICATIONS CAD The imaging protocol used to acquire images was Rest Tc-99m/stress Tc-99m 1 day Consent: The procedure was explained and understood by the patient. Informerd consent was witnessed Alix Beth RN First, low dose rest was performed then high dose stress. RESTING DATA: The resting ekg shows: Pacemaker Rest SPECT myocardial perfusion imaging was performed in supine position 60 minutes following the int ravenous injection of 10.6 mCi of Tc-99 Sestamibi. Time of rest injection: 09:45: Date: 01/17/2025 Time of rest imagin:45: Date: 01/17/2025 PHARMACOLOGIC STRESS: Pharmacologic stress test was performed by injecting regadenoson 0.4 mg IV push followed by the intra venous injection of 30.5 mCi of Tc-99 Sestamibi. Time of stress injection: 11:27: Date: 01/17/2025 Time of stress imagin:40: Date: 01/17/2025 Heart Rate at time of stress injection: 75 bpm. Gated Stress SPECT was performed 73 minutes after stress injection. The images were gated to evaluate regional wall motion and calculate left ventricular ejection fracti on. STRESS DETAILS Reason for Termination: Infusion complete Stress Symptoms: No chest pain or symptoms Max HR Achieved: 76 bpm % of APMHR Achieved: 56 Max Blood Pressure: 146/86 mmHg Stress ECG: Pacemaker LEFT VENTRICLE Size: The left ventricular size is mildly dilated. Systolic Function:The left ventricular systolic function is moderately decreased. Wall Motion: Moderate global hypokinesis. The left ventricular ejection fraction was calculated to be 40%.TID = . LV PERFUSION Partially reversible anterior wall defect. Reversible infero-lateral, and apical defects. Conclusion The left ventricular size is mildly dilated. The left ventricular systolic function is moderately decreased. Moderate global hypokinesis. Partially reversible anterior wall defect. Reversible infero-lateral, and apical defects. The left ventricular ejection fraction was calculated to be 40%.
== END | disposition home or self-care (01) ==
LOC: SHCH 09:11
PROVIDERS: ATTEND Internal Medicine Cardiovascular Disease
DX: I25.10 Atherosclerotic heart disease of native coronary artery without angina pectoris (principal)
CPT/HCPCS: 78452; 93017; J2785; A9500 ×2

== ENCOUNTER 2025-03-04 08:25 | Day surgery (SDC) | payer OTHER ==
[2025-03-02 13:36] VITALS: BP 141/79; PULSE 77; RESP 18; TEMP 97.5
[2025-03-02 13:39] LABS: BASOPHILS # (AUTO) 0.03 K/uL (0.00-0.20); BASOPHILS % (AUTO) 0.5 % (0.0-5.0); EOSINOPHILS # (AUTO) 0.13 K/uL (0.00-0.70); EOSINOPHILS % (AUTO) 2.1 % (0.0-8.0); HEMATOCRIT 35.6 % (42-54); IMMATURE GRANULOCYTE ABSOLUTE 0.03 K/uL (0-1); LYMPHOCYTES # (AUTO) 0.6 K/uL (1.0-4.8); MEAN CORPUSCULAR HGB CONC 31.7 g/dL (32.0-36.0); MEAN CORPUSCULAR VOLUME 97.5 fL (79-99); MONOCYTES # (AUTO) 0.6 K/uL (0.1-1.0); MONOCYTES % (AUTO) 10.3 % (3.0-13.0); NEUTROPHILS # (AUTO) 4.8 K/uL (1.8-7.7); NEUTROPHILS % (AUTO) 77.6 % (40.0-77.0); PLATELET COUNT (AUTO) 176 K/uL (130-400); RED BLOOD CELL COUNT(AUTO) 3.65 MIL/uL (4.50-6.20); WHITE BLOOD COUNT (AUTO) 6.2 K/uL (4.8-10.8)
[2025-03-02 13:48] LABS: CREATININE 1.4 mg/dL (0.5-1.3); POTASSIUM 4.8 mmol/L (3.5-5.1)
[2025-03-02 13:49] LABS: INR 1.02 (0.85-1.15); PROTHROMBIN TIME 10.8 SEC (9.6-11.6)
[2025-03-02 13:50] LABS: PARTIAL THROMBOPLASTIN TIME 27.7 SEC (26.3-35.5)
[2025-03-02 13:51] LABS: APPEARANCE,URINE CLEAR (CLEAR); BILIRUBIN,URINE NEGATIVE (NEGATIVE); COLOR,URINE LIGHT-YELLOW (YELLOW); GLUCOSE, URINE (UA) NEGATIVE (NEGATIVE); KETONES,URINE NEGATIVE (NEGATIVE); LEUKOCYTE ESTERASE ,URINE NEGATIVE Leu/uL (NEGATIVE); NITRATE,URINE NEGATIVE (NEGATIVE); OCCULT BLOOD,URINE MODERATE (NEGATIVE); PROTEIN,URINE NEGATIVE (NEGATIVE); UROBILINOGEN,URINE 0.2 mg/dL (0.2-1.0)
[2025-03-02 13:55] LABS: ADD UA MICROSCOPIC YES
[2025-03-02 13:56] LABS: RBC,URINE 51-100 /HPF (0-1); SQUAMOUS EPITHELIAL CELL,UR RARE /HPF (0-2)
[2025-03-02 14:02] LABS: B-TYPE NATRIURETIC PEPTIDE 208 pg/mL (0-100)
--- NOTE | 2025-03-02 14:54 | EKG ---
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
--- NOTE | 2025-03-02 15:43 | HMCIMG ---
Exam Type: CHEST 1VW Clinical Information: pre-op Comparison: None Findings: There is cardiomegaly and there is status post median sternotomy. The lungs are clear of infiltrates. Left-sided cardiac pacemaker is noted with leads in place. Impression: Clear lungs.
--- NOTE | 2025-03-03 10:35 | NUR ---
RE: LABS REPORTED BMP RESULTS TO PARMINDER BROWNLEE NP. NO NEW ORDERS RECEIVED.
[2025-03-04] VITALS (12 sets, daily range): BP systolic 110–134; BP diastolic 60–79; PULSE 70–76; RESP 14–18; TEMP 97.5–98.7
[~2025-03-04] VITALS: Ht 170.2 cm; Wt 79.5 kg
[~2025-03-04 08:25] MED LIST changes: -ACET-2123 PO; +ALPR0.5T8 PO; -FERR-82 PO; +FEXO1TAB8 PO; +FINA5TAB41 PO; +GLIP1TAB6 PO; -METF-526 PO; +ONDA-105 PO; +PANT40TA54 PO; +RIVA15TA PO; -RIVA20TA PO; +SACU1TAB PO; -SACU1TAB7 PO; -TAMS-1 PO; +TAMS-55 PO; -XANAX PO
[2025-03-04] MEDS ORDERED: NITROGLYCERIN 50MG VIAL ONE (09:54)
[2025-03-04] MEDS ORDERED: HEParin-NS 1,000 UNIT/500 ML 1,000 ML IV ONE (09:54)
[2025-03-04] MEDS ORDERED: LIDOCAINE HCL 400MG/20ML VIAL ONE (09:54)
[2025-03-04] MEDS ORDERED: SODIUM BICARB 50MEQ 50ML VIAL 50 ML ONE (09:54)
[2025-03-04] MEDS ORDERED: IOHEXOL 350 MG/ML 100ML INFUS..BTL IV ONE (09:54)
[2025-03-04] MEDS ORDERED: HEParin 10,000 UNIT/10ML (1,000 UNIT/ML) VIAL ONE (09:54)
[2025-03-04] MEDS ORDERED: MIDAZOLAM HCL 1 MG/ML 2ML VIAL ONE ×2 (10:24→10:31)
[2025-03-04] MEDS ORDERED: FENTanyl CITRate PF 50 MCG/1 ML 2ML VIAL ONE (10:24)
[2025-03-04] MEDS: 0.9%NACL 1000ML 1,000 ML IV SCH (10:41)
[2025-03-04] MEDS ORDERED: GLUCAGON 1MG KIT 1 MG ML IM PRN (11:30)
[2025-03-04] MEDS ORDERED: INSULIN humuLIN R 100 UNIT/ML 3ML SQ SCH (11:30)
[2025-03-04] MEDS ORDERED: DEXTROSE 50%-WATER 50 ML DISP.SYRIN IV PRN (11:30)
--- NOTE | 2025-03-04 12:31 | PR ---
PROCEDURES: * Left heart catheterization. * Selective right and left coronary arteriogram. * Saphenous vein graft angiogram. * Left internal mammary artery angiogram. * Conscious sedation for 30 minutes. INDICATIONS: * History of severe coronary artery disease. * Status post remote coronary artery bypass surgery. * Status post remote coronary artery stenting. * Ischemic cardiomyopathy. * Recurrent angina. * Abnormal Cardiolite. COMPLICATIONS: None. TOTAL CONTRAST: 70 mL. APPROACH: Right femoral approach. DESCRIPTION OF PROCEDURE: The patient was taken to the cardiac supervisor laboratory after appropriate operative consents were signed. He was prepped and draped in the usual fashion. After conscious sedation was administered, the right common femoral artery region was infiltrated with 2% Xylocaine without epinephrine. The right common femoral artery was accessed utilizing ultrasound guidance. A 6-Moroccan sheath was advanced in retrograde fashion by a modified Seldinger technique. At this point, an FL4 6-Moroccan catheter was advanced over an indwelling wire. This was selected and engaged in the ostium of the left main. The left main was imaged in multiplane. This was a large vessel that was free of disease that bifurcated in the LAD, and a circumflex. Circumflex coronary artery was a moderately sized codominant vessel that gave rise to several marginal branches and ongoing circ with a left PLVB. The first obtuse marginal was a moderately sized branching vessel that had a patent stent in its proximal portion that was deployed in 09/2020. The rest of the circ system was free of stenosis. The LAD was moderately sized vessel in its proximal portion that gives rise to the diagonal 1 that was occluded 100% in its ostium. The LAD had a stent that traversed the ostium with diagonal between the ostium of the LAD and the mid LAD. The stent had a 70% in-stenosis proximally and 100% occlusion and the soboba LAD was not seen with soboba injections because of the occluded distal part of the stent in the mid LAD. At this point, the catheter was withdrawn and an FR4 6-Moroccan catheter was advanced and placed in the left ventricular cavity. Left ventricular end diastolic pressure measurement was obtained. Ventriculography was deferred. The patient has an EF of 35-40% by echocardiography. Pull back revealed no aortic stenosis. At this point, the catheter was engaged in the ostium of the right coronary artery. This was imaged in multiplane. This was a moderately sized vessel that was calcified and codominant. It gave rise to an acute marginal and a PDA. The mid RCA had a 20-30% stenotic lesion. The PDA had a 30% stenotic lesion. At this point, the catheter was engaged in the saphenous vein graft to the diagonal. This was a moderately large graft supplying a moderately sized diagonal with good flow. At this point, angiography was performed in the left subclavian artery, which was fairly normal. The left internal mammary artery was cannulated utilizing an IM catheter, which was placed and the left internal mammary was imaged. This was unusually more lateral than the usual location; however, it was a moderately sized mammary artery, patent with good flow to a moderately sized LAD. At this point, the procedure was completed, Perclose was utilized with good hemostasis. The patient tolerated it well and left the cardiac supervisor laboratory in stable condition. FINAL IMPRESSION: * Severe coronary artery disease. * Ischemic cardiomyopathy. * Patent 2 of 2 grafts, MACEDO to the LAD and saphenous vein graft to the diagonal. * Patent stent to the OM, deployed in 09/2020. * No aortic stenosis. PLAN: Continue to optimize medical management. TID: [id number] RECEIPT: [id number]
[2025-03-04] MEDS ORDERED: acetaMINOPHEN 325 MG TAB PO ONE (16:00)
[2025-03-04] MEDS: acetaMINOPHEN 325 MG TAB ONE (16:01)
--- NOTE | 2025-03-04 16:45 | NUR ---
DRY BLOOD NOTED TO RIGHT FEMORAL SITE NO ACTIVE BLEEDING NOTED. VSS NAD AREA SOFT NON TENDER
== END 2025-03-04 17:10 | disposition home or self-care (01) ==
LOC: DAH 08:25
PROVIDERS: ATTEND Internal Medicine Cardiovascular Disease
DX: R94.39 Abnormal result of other cardiovascular function study (principal); I25.118 Atherosclerotic heart disease of native coronary artery with other forms of angina pectoris; I25.84 Coronary atherosclerosis due to calcified coronary lesion; I25.5 Ischemic cardiomyopathy; T82.855A Stenosis of coronary artery stent, initial encounter; I11.0 Hypertensive heart disease with heart failure; I50.42 Chronic combined systolic (congestive) and diastolic (congestive) heart failure; I48.20 Chronic atrial fibrillation, unspecified; G47.33 Obstructive sleep apnea (adult) (pediatric); E78.5 Hyperlipidemia, unspecified; E11.9 Type 2 diabetes mellitus without complications; Z95.1 Presence of aortocoronary bypass graft; Z95.810 Presence of automatic (implantable) cardiac defibrillator; Z79.899 Other long term (current) drug therapy; Z79.01 Long term (current) use of anticoagulants; Z90.49 Acquired absence of other specified parts of digestive tract; Z98.890 Other specified postprocedural states; Z95.5 Presence of coronary angioplasty implant and graft; Y71.8 Miscellaneous cardiovascular devices associated with adverse incidents, not elsewhere classified
CPT/HCPCS: 80048; 83880; 85025; 85610; 85730; 81001; 36415; 71045; 93005; 93459; 82948; C1769; C1894 ×2; C1760; Q9965; J3010; J3490 ×3; J2250 ×2; J1644; Q9967; A4215; A4222; A4221; A4663; A4216; A4606; A4223 ×3; 99156; 99157

== ENCOUNTER 2025-10-10 12:01 | Inpatient (IN) | payer OTHER ==
[~2025-10-10] VITALS: Ht 175.3 cm; Wt 81.1 kg
--- NOTE | 2025-10-10 12:20 | EKG ---
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
[2025-10-10 12:36] LABS: NUCLEATED RED BLOOD CELLS 0.0 % (0.0-0.19); PLATELET COUNT (AUTO) 208.0 K/uL (130-400); RED BLOOD CELL COUNT(AUTO) 2.72 MIL/uL (4.50-6.20); RED CELL DISTRIBUTION WIDTH 15.1 % (11.0-15.5); WHITE BLOOD COUNT (AUTO) 10.1 K/uL (4.8-10.8)
--- NOTE | 2025-10-10 12:41 | ERN ---
General Chief Complaint: Weakness Stated Complaint: WEAKNESS Time Seen by MD: 12:03 Source: EMS History of Present Illness Initial Comments Year old male who came to the ER with complaint of weakness and1 episode of bloody vomiting. The patient had episode of bilious vomiting on Friday and today he went the clinic after which he was brought to the ER for workup of hematemesis and hypotension Allergies: Coded Allergies: rosuvastatin (Unverified Allergy, Unknown, 10/10/25) Home Meds Reported Medications Tizanidine HCl (Tizanidine HCl) 4 Mg Tablet, 4 MG PO BID, TAB 10/10/25 Loratadine (Loratadine) 10 Mg Tablet, 10 MG PO DAILY, TAB 10/10/25 Furosemide (Furosemide) 40 Mg Tablet, 40 MG PO DAILY, TAB 10/10/25 Dapagliflozin Propanediol (Farxiga) 5 Mg Tablet, 5 MG PO DAILY, TAB 10/10/25 Duloxetine HCl (Duloxetine HCl) 20 Mg Capsule.dr, 20 MG PO BID, CAP 10/10/25 Baclofen (Baclofen) 10 Mg Tablet, 10 MG PO BID, TAB 10/10/25 Sacubitril/Valsartan (Entresto 24 mg-26 mg Tablet) 24 Mg-26 Mg Tablet, 1 EACH PO BID, TAB 03/02/25 Glipizide/Metformin HCl (Glipizide-Metformin 5-500 mg) 5 Mg-500 Mg Tablet, 1 EACH PO DAILY, TAB 03/02/25 Pantoprazole Sodium (Pantoprazole Sodium) 40 Mg Tablet.dr, 40 MG PO DAILY, TAB 03/02/25 Alprazolam (Alprazolam) 0.5 Mg Tablet, 0.5 MG PO DAILY, TAB 03/02/25 Finasteride (Finasteride) 5 Mg Tablet, 5 MG PO DAILY, TAB 03/02/25 Ondansetron HCl (Ondansetron HCl) 8 Mg Tablet, 8 MG PO BID PRN for NAUSEA/VOMITING, TAB 03/02/25 Fexofenadine/Pseudoephedrine (Cleo-D 24 Hour Tablet) 180 Mg-240 Mg Tab.er.24h, 1 EACH PO HS, TAB 03/02/25 Rivaroxaban (Xarelto) 15 Mg Tablet, 15 MG PO DAILY, TAB 03/02/25 Tramadol Hcl (Tramadol HCl) 50 Mg Tablet, 50 MG PO BID PRN for PAIN, TAB 02/20/24 Simvastatin (Simvastatin) 20 Mg Tablet, 20 MG PO HS, TAB 12/24/23 Sucralfate (Sucralfate) 1 Gram Tablet, 0.5 GM PO BID, TAB 12/24/23 Spironolactone (Spironolactone) 25 Mg Tablet, 25 MG PO DAILY, TAB 12/24/23 Atenolol (Atenolol) 100 Mg Tablet, 100 MG PO DAILY, TAB 12/24/23 Clopidogrel Bisulfate (Plavix) 75 Mg Tablet, 75 MG PO DAILY, TAB 02/14/21 Tamsulosin HCl (Flomax) 0.4 Mg Cap.er.24h, 0.4 MG PO DAILY, CAPSULE. 01/23/18 Discontinued Reported Medications Tamsulosin HCl (Flomax) 0.4 Mg Cap.er.24h, 0.2 MG PO NOON, CAPSULE. 03/02/25 Furosemide (Furosemide) 20 Mg Tablet, 20 MG PO AM, TAB 02/14/21 Past Medical History Past Medical History: A-Fib, Diabetes-Type II, Hypertension Past Surgical History: Appendectomy, Pacer/AICD, Other Surgical History Other: EVELYN, EYE, AND EAR SX. Family History Family History: DM, HTN Social History Social History: Negative, Lives with family Physical Exam General Appearance: (+) no apparent distress Orientation: (+) alert, (+) oriented x 3 Head/Face Trauma: No Ear, Nose, Throat: (-) hearing grossly normal, (-) normal ENT inspection, (-) moist mucous membraine, (-) normal pharynx, (-) normal TM, (-) abnormal TM, (-) pharyngeal erythema, (-) sinus drainange, (-) sinus pain, (-) tonsillar exudate, (-) tonsillar swelling, (-) nasal drip, (-) nasal congestion, (-) hearing decreased, (-) dry mucous membraine, (-) other documentation Neck: (-) normal inspection, (-) supple, (-) full range of motion, (-) no JVD, (-) non-tender, (-) no bruit, (-) tender, (-) limited range of motion, (-) tender lateral, (-) tender midline, (-) thyromegaly, (-) lymphadenopathy, (-) masses, (-) carotid bruit, (-) other documentaion Respiratory: (-) chest non-tender, (-) lungs clear, (-) well ventilated, (-) decreased breath sounds, (-) retractions, (-) abnormal breath sound, (-) c rackles, (-) plerual rub, (-) rales, (-) rhonchi, (-) stridor, (-) wheezing, (-) other documentation Heart: (-) regular, (-) no gallop, (-) murmur, (-) irregular, (-) bradycardia, (-) tachycardia, (-) systolic murmur, (-) diastolic murmur, (-) extra beats, (-) friction rub, (-) gallop/S3, (-) gallop/S4, (-) other documentation Vascular: (-) no edema, (-) normal peripheral pulse, (-) no JVD, (-) abdominal aorta, (-) abnormal peripheral pulse, (-) carotid bruit, (-) edema, (-) JVD, (-) varicose vein, (-) other documentation Gastrointestinal: (+) tender Neurologic/Psychiatric: (-) normal speech, (-) no motor defecits, (-) no sensory deficits, (-) security technician II-XII nml as tested, (-) normal gait, (-) normal mood/affect, (-) abnormal cerebellar tests, (-) abnormal gait, (-) aphasia, (-) facial droop, (-) other documentation Results Laboratory and Microbiology Lab and Micro Result Laboratory Tests Test 10/10/25 12:23 10/10/25 13:49 White Blood Count 10.1 K/uL (4.8-10.8) Red Blood Count 2.72 MIL/uL (4.50-6.20) L Hemoglobin 8.3 g/dL (14.0-18.0) L Hematocrit 25.8 % (42-54) L Mean Corpuscular Volume 94.9 fL (79-99) Mean Corpuscular Hemoglobin 30.5 pg (27.0-33.0) Mean Corpuscular Hemoglobin Concent 32.2 g/dL (32.0-36.0) Red Cell Distribution Width 15.1 % (11.0-15.5) Platelet Count 208 K/uL (130-400) Mean Platelet Volume 11.6 fL (7.5-10.5) H Nucleated Red Blood Cells 0.0 % (0.0-0.19) Prothrombin Time 15.2 SEC (9.6-11.6) H Prothromb Time International Ratio 1.49 (0.85-1.15) H Activated Partial Thromboplast Time 35.3 SEC (26.3-35.5) Sodium Level 138 mmol/L (136-145) Potassium Level 4.5 mmol/L (3.5-5.1) Chloride Level 107 mmol/L (101-111) Carbon Dioxide Level 28 mmol/L (21-32) Blood Urea Nitrogen 62 mg/dL (7-18) H Creatinine 1.9 mg/dL (0.5-1.3) H Glomerular Filtration Rate Calc 34 mL/min (>90) Random Glucose 145 mg/dL (70-105) H Lactic Acid Level 1.7 mmol/L (0.8-2.5) Total Calcium 8.2 mg/dL (8.5-10.1) L Total Bilirubin 2.7 mg/dL (0.2-1.0) H Direct Bilirubin 2.3 mg/dL (0.0-0.3) H Aspartate Amino Transf (AST/SGOT) 56 U/L (10-37) H Alanine Aminotransferase (ALT/SGPT) 36 U/L (12-78) Alkaline Phosphatase 216 U/L (50-136) H Troponin I High Sensitivity 94 ng/L (4-75) *H 88 ng/L (4-75) *H Total Protein 5.8 g/dL (6.0-8.3) L Albumin 2.3 g/dL (3.5-5.0) L Labs Reviewed?: Yes EKG/XRAY/US/CT/MRI EKG Comment Pulse rate 77 TN interval 146 QT interval 461 No Segment elevation MDM MDM: Differential diagnosis: Upper GI bleed, dehydration, ROSA The patient was seen and examined in the ER. The patient was hypotensive therefore he was given1 L of normal saline bolus. Due to his upper GI bleed he was started on Protonix 40 mg and1 g ceftriaxone. The patient's lab showed creatinine of 1.9 and BUN 62 indicating acute kidney injury. Patient had deranged LFTs and hemoglobin was of 8.3. The patient is admitted for possible endoscopy for upper GI bleed and acute kidney injury. Case was discussed with benchmark and the patient was admitted. ED Course Orders Procedure Category Date Status Time Cbc Without LAB 10/10/25 Complete Differential 12:15 Basic Metabolic Panel LAB 10/10/25 Complete 12:15 Hepatic Function Panel LAB 10/10/25 Complete 12:15 Pt And Ptt LAB 10/10/25 Complete 12:15 12 Lead Ekg Tracing- EKG 10/10/25 Complete Technical 12:15 Troponin I High LAB 10/10/25 Complete Sensitivity 12:15 Chest 1vw RAD 10/10/25 Resulted 12:15 Pantoprazole 40mg Inj PHA 10/10/25 Complete (Protonix 40mg Inj 12:30 Type And Screen BBK 10/10/25 Complete 12:18 Lactic Acid LAB 10/10/25 Complete 12:28 Blood Cult MELINA 10/10/25 In Process 12:28 Urinalysis Profile LAB 10/10/25 Complete 12:28 Ceftriaxone 1g Vial PHA 10/10/25 Complete (Rocephine 1g Inj) 13:00 0.9%Nacl 1000ml (Ns PHA 10/10/25 Complete 1000ml) 13:00 Troponin I High LAB 10/10/25 Complete Sensitivity 13:43 Current Medications Medications (Trade) Dose Ordered Sig/Livan Route PRN Reason Start Time Stop Time Status Last Admin Dose Admin Ceftriaxone Sodium (ROCEphine 1G INJ) 1 gm ONCE ONCE IVPB 10/10/25 13:00 10/10/25 13:01 DC 10/10/25 12:53 Pantoprazole Sodium (PROTonix 40MG INJ) 40 mg ONCE ONCE IVP 10/10/25 12:30 10/10/25 12:31 DC 10/10/25 12:28 Sodium Chloride 1,000 ml @ 0 mls/hr ONCE ONCE IV 10/10/25 13:00 10/10/25 13:01 DC 10/10/25 12:53 Vital Signs Date Time Temp Pulse Resp B/P (MAP) Pulse Ox O2 Delivery O2 Flow Rate FiO2 10/10/25 12:16 99.1 75 20 101/50 98 Room Air* 0 21 12/22/25 12:03 99.1 75 19 91/53 95 Room Air 0 DX & DISP Disposition: Inpatient Departure Impression: Primary Impression: Upper GI bleed Additional Impressions: ROSA (acute kidney injury), Abnormal LFTs, Hypotension Condition: Stable Referrals: LEXIE ALFONSO MD (PCP) I performed a substantive portion of the visit. I have reviewed and personally made and approve the management plan that is documented in the notes by myself with RUSSELL/resident. I acknowledged full responsibility for the patient's management plan. MIMA TOLLIVER MD Oct 10, 2025 12:41 MILKA AYALA DO Oct 10, 2025 17:59
[2025-10-10] MEDS: 0.9%NACL 1000ML 1,000 ML IV ONE (12:53)
[2025-10-10] MEDS ORDERED: BACL10TA PO (13:08)
[2025-10-10] MEDS ORDERED: DULO20CA18 PO (13:08)
[2025-10-10] MEDS ORDERED: TIZA-211 PO (13:08)
[2025-10-10] MEDS ORDERED: FURO40TA5 PO (13:08)
[2025-10-10] MEDS ORDERED: LORA10TA7 PO (13:08)
[2025-10-10] MEDS ORDERED: DAPA5TAB PO (13:08)
[2025-10-10 13:15] LABS: CREATININE 1.9 mg/dL (0.5-1.3); GLOMERULAR FILTR. RATE CALC 34.0 mL/min (>90); GLUCOSE,RANDOM 145.0 mg/dL (70-105); SODIUM SERUM 138.0 mmol/L (136-145); UREA NITROGEN, BLOOD 62.0 mg/dL (7-18)
[2025-10-10 13:20] LABS: ASPARTATE AMINOTRANSFERASE 56.0 U/L (10-37); TOTAL PROTEIN, SERUM 5.8 g/dL (6.0-8.3)
--- NOTE | 2025-10-10 13:32 | HMCIMG ---
EXAM: CR Chest, 2 View. CLINICAL HISTORY: Weakness COMPARISON: Radiograph dated March 02, 2025. FINDINGS: LUNGS: The lungs show no infiltrate or other acute finding. PLEURAL SPACES: No pleural effusion or pneumothorax. MEDIASTINUM: AICD leads overlie the right atrium and both ventricles. Mild cardiomegaly. Pulmonary vessels are within normal limits. BONES: No acute osseous abnormality. IMPRESSION: 1. No acute cardiopulmonary findings. 2. AICD leads in place. Mild cardiomegaly. /[place]
[2025-10-10 13:36] LABS: INR 1.49 (0.85-1.15)
[2025-10-10] MEDS ORDERED: LIDOCAINE HCL 2% VISCOUS 30 ML, MAG/ALUM/SIMETH 30ML 30 ML, DICYCLOMINE HCL 20 MG PO PRN (14:30)
[2025-10-10] MEDS ORDERED: LOPERAMIDE HCL 2 MG CAP PO PRN (14:30)
[2025-10-10] MEDS ORDERED: ARTIFICAL TEARS SOL 15 ML OP PRN (14:30)
[2025-10-10] MEDS ORDERED: BENZOCAINE/MENTH/CETYLPYRD CL 1 EACH LOZENGE MM PRN (14:30)
[2025-10-10] MEDS ORDERED: LACTULOSE 20 GM/30 ML UDCUP PO PRN (14:30)
[2025-10-10] MEDS ORDERED: MAG/ALUM/SIMETH 30 ML UDCUP PO PRN (14:30)
[2025-10-10] MEDS ORDERED: NITROGLYCERIN 0.4 MG SL TAB SL PRN (14:30)
[2025-10-10] MEDS ORDERED: guaiFENesin-DM 200/20MG 10ML PO PRN (14:30)
--- NOTE | 2025-10-10 14:31 | HP ---
[facility] HISTORY & PHYSICAL Date Patient Seen: Oct 10, 2025 Time of Visit: 14:30 Supervising Physician: Dr. Neevs Primary Care Physician: Dr. Lincoln Howard Outpatient Specialists: [ ] Inpatient Consults: TDS (GI) PROBLEM LIST: Upper GI bleed Hematemesis Severe anemia secondary to the above ROSA Atrial fibrillation on Xarelto Diabetes type 2 Hypertension History of ppm/AICD BPH Hypercholesteremia Generalized anxiety disorder HPI: Patient is an 85-year-old male with reports of general body weakness and one episode of hematemesis. Patient states that following the episode of hematemesis he reported to his GI clinic who recommended that he report to the emergency department for further workup and for hypotension. At the time of my assessment patient is tired, but able to participate in the exam, he is currently on room air, hemoglobin is 8.3, creatinine 1.9. Patient has had no further episodes of hematemesis on this admission. His blood pressure today is 96/49 with a heart rate of 75. LFTs are normal. GI team will be consulted for possible EGD in the morning. Patient will be placed on Protonix IV b.i.d. and remain NPO at this time. Plan Patient to remain NPO Consult GI Plan for possible EGD tomorrow Monitor H&H Trend creatinine Avoid nephrotoxic agents Continue with IV fluid hydration Monitor vitals Protonix b.i.d. Follow morning labs PAST MEDICAL HX: see above PAST SURGICAL HX: noncontributory SOCIAL HISTORY: No tobacco, ETOH, or illicit drug use Coded Allergies: rosuvastatin (Unverified Allergy, Unknown, 10/10/25) REVIEW OF SYSTEMS: 12 point ROS reviewed with patient. Pertinent positives mentioned above. Otherwise negative. PHYSICAL EXAM: GENERAL: alert, weak, awake oriented x 3 HEENT: EOMI, Sclera non icteric, moist mucosa NECK: Supple, no JVD, trachea midline LUNGS: Clear breath sounds bilaterally. No wheezes HEART: Regular rate and rhythm. Normal S1 and S2, without murmurs ABD: Abdomen soft, nontender. Bowel sounds present EXT: No clubbing cyanosis or edema NEURO: Alert and oriented to person, follows commands Vital Signs (last 8hr) Date Time Temp Pulse Resp B/P (MAP) Pulse Ox O2 Delivery O2 Flow Rate FiO2 10/10/25 12:16 99.1 75 20 101/50 98 Room Air* 0 21 10/10/25 12:03 99.1 75 19 91/53 95 Room Air 0 LABS: Hematology Labs: Test 10/10/25 12:23 Range/Units White Blood Count 10.1 4.8-10.8 K/uL Red Blood Count 2.72 L 4.50-6.20 MIL/uL Hemoglobin 8.3 L 14.0-18.0 g/dL Hematocrit 25.8 L 42-54 % Mean Corpuscular Volume 94.9 79-99 fL Mean Corpuscular Hemoglobin 30.5 27.0-33.0 pg Mean Corpuscular Hemoglobin Concent 32.2 32.0-36.0 g/dL Red Cell Distribution Width 15.1 11.0-15.5 % Platelet Count 208 130-400 K/uL Mean Platelet Volume 11.6 H 7.5-10.5 fL Nucleated Red Blood Cells 0.0 0.0-0.19 % Chemistry Labs: Test 10/10/25 12:23 Range/Units Sodium Level 138 136-145 mmol/L Potassium Level 4.5 3.5-5.1 mmol/L Chloride Level 107 101-111 mmol/L Carbon Dioxide Level 28 21-32 mmol/L Blood Urea Nitrogen 62 H 7-18 mg/dL Creatinine 1.9 H 0.5-1.3 mg/dL Glomerular Filtration Rate Calc 34 >90 mL/min Random Glucose 145 H 70-105 mg/dL Lactic Acid Level 1.7 0.8-2.5 mmol/L Total Calcium 8.2 L 8.5-10.1 mg/dL Total Bilirubin 2.7 H 0.2-1.0 mg/dL Direct Bilirubin 2.3 H 0.0-0.3 mg/dL Aspartate Amino Transf (AST/SGOT) 56 H 10-37 U/L Alanine Aminotransferase (ALT/SGPT) 36 12-78 U/L Alkaline Phosphatase 216 H 50-136 U/L Troponin I High Sensitivity 94 *H 4-75 ng/L Total Protein 5.8 L 6.0-8.3 g/dL Albumin 2.3 L 3.5-5.0 g/dL Coagulation Labs: Test 10/10/25 12:23 Range/Units Prothrombin Time 15.2 H 9.6-11.6 SEC Prothromb Time International Ratio 1.49 H 0.85-1.15 Activated Partial Thromboplast Time 35.3 26.3-35.5 SEC DIAGNOSTICS / RADIOLOGY RESULTS: [ ] PLAN NEURO: Minimize central acting medications as possible. Maintain fall precautions, adequate lighting during the day PULMONARY: Supplemental 02 as needed. Maintain aspiration precautions at all times CARDIOVASCULAR: Follow hemodynamics. Vital signs per facility protocol GI & NUTRITION: Continue with nutritional support. Continue stool softeners and laxatives as needed. KIDNEYS & ELECTROLYTES: Strict monitoring of intake, output and overall fluid balance. Avoid nephrotoxic medications to the extent possible. Medications to be dosed according to renal function. Monitor electrolytes and replace as needed ENDOCRINE: Maintain blood glucose between 100-180 at all times. Hypoglycemia protocol in place INFECTIOUS DISEASE: Trend temperature, WBC and procalcitonin level Follow cultures, deescalate antibiotics as soon as possible. Panculture if new onset fever ONCOLOGY/HEMATOLOGY/COAGULATION: Monitor for s/s of bleeding Monitor hemoglobin, coagulation studies as needed SKIN: Pressure ulcer prevention per facility protocol Specialty mattress ORTHO/REHAB: Continue PT/OT Prophylaxis: Continue GI and DVT prophylaxis Code Status: Full Resuscitation Disposition: TBD Other: Total patient care time exceeds 35 minutes excluding all procedures. MIGEL VALADEZ PAC Oct 10, 2025 14:31
[2025-10-10] MEDS: 0.9%NACL 1000ML 1,000 ML IV SCH (15:53)
--- NOTE | 2025-10-10 15:56 | CONS ---
GASTROENTEROLOGY CONSULTATION NOTE Date of Consultation: Oct 10, 2025 Time of Consultation: 15:53 History of Present Illness: [85 YO male patient with c/o hematemesis. ] Review of Systems: CONSTITUTIONAL: No malaise or change in sensation of wellbeing. ENMT: No rhinorrhea, otorrhea, sinus pain, ear ache. CARDIOVASCULAR: No angina, palpitations, orthopnea or paroxysmal dyspnea. RESPIRATORY: No SOB. GASTROINTESTINAL: No abdominal pain, nausea, vomiting, diarrhea, hematemesis, melena or change in the patient's habitual bowel movements consistency/number. GENITOURINARY: No dysuria, hematuria or change in bladder continence. MUSCULOSKELETAL: No new muscle pain or decrease in muscular strength. No new joint swelling, redness or tenderness. SKIN: No new rash. Past Medical History: [ ] Past Surgical History: [ ] Past Social History: [ ] Family History: [ ] Coded Allergies: rosuvastatin (Unverified Allergy, Unknown, 10/10/25) Physical Exam: GEN: Awake, alert, oriented in person, time and place, and in no acute distress. HEENT: No sinus tenderness. Tympanic membranes were not examined. No rhinorrhea. Oral pharyngeal mucosa is pink, moist and within normal limits. Neck is supple with no cervical lymphadenopathy, thyromegaly or JVD. CHEST: Inspection, palpation and percussion of the chest were unremarkable. Lung auscultation revealed normal breath sounds bilaterally. CARDIAC: PMI is within normal limits. Heart sounds are regular. Normal S1, S2. No gallop or murmur. ABD: Soft, non-tender and not distended. No peritoneal signs on palpation. No organomegaly. Normal bowel sounds. EXT: No cyanosis or clubbing. No edema. SKIN: Intact. No rashes. JOINTS: No evidence of synovitis or acute arthritis. NEURO: Alert and oriented to name, place and person. Cranial nerve examination is unremarkable. No focal motor deficits. Normal speech. Gait is normal. Strength is normal. Vital Sign (Last 24 Hours) 10/10/25 10/10/25 12:16 15:23 Temp 99.1 Pulse 75 Resp 12 B/P (MAP) 100/54 Pulse Ox 98 O2 Delivery Room Air* O2 Flow Rate 0 FiO2 21 Laboratory: [ ] Laboratory: Test 10/10/25 13:49 10/10/25 12:23 Range/Units Troponin I High Sensitivity 88 *H 4-75 ng/L White Blood Count 10.1 4.8-10.8 K/uL Red Blood Count 2.72 L 4.50-6.20 MIL/uL Hemoglobin 8.3 L 14.0-18.0 g/dL Hematocrit 25.8 L 42-54 % Mean Corpuscular Volume 94.9 79-99 fL Mean Corpuscular Hemoglobin 30.5 27.0-33.0 pg Mean Corpuscular Hemoglobin Concent 32.2 32.0-36.0 g/dL Red Cell Distribution Width 15.1 11.0-15.5 % Platelet Count 208 130-400 K/uL Mean Platelet Volume 11.6 H 7.5-10.5 fL Nucleated Red Blood Cells 0.0 0.0-0.19 % Prothrombin Time 15.2 H 9.6-11.6 SEC Prothromb Time International Ratio 1.49 H 0.85-1.15 Activated Partial Thromboplast Time 35.3 26.3-35.5 SEC Sodium Level 138 136-145 mmol/L Potassium Level 4.5 3.5-5.1 mmol/L Chloride Level 107 101-111 mmol/L Carbon Dioxide Level 28 21-32 mmol/L Blood Urea Nitrogen 62 H 7-18 mg/dL Creatinine 1.9 H 0.5-1.3 mg/dL Glomerular Filtration Rate Calc 34 >90 mL/min Random Glucose 145 H 70-105 mg/dL Lactic Acid Level 1.7 0.8-2.5 mmol/L Total Calcium 8.2 L 8.5-10.1 mg/dL Total Bilirubin 2.7 H 0.2-1.0 mg/dL Direct Bilirubin 2.3 H 0.0-0.3 mg/dL Aspartate Amino Transf (AST/SGOT) 56 H 10-37 U/L Alanine Aminotransferase (ALT/SGPT) 36 12-78 U/L Alkaline Phosphatase 216 H 50-136 U/L Total Protein 5.8 L 6.0-8.3 g/dL Albumin 2.3 L 3.5-5.0 g/dL Current Medications Medications (Trade) Dose Ordered Sig/Livan Route PRN Reason Start Time Stop Time Status Last Admin Dose Admin Acetaminophen (TYLenol 325MG TAB) 650 mg Q4H PRN PO MILD PAIN (1-3) 10/10/25 14:30 11/09/25 14:29 Acetaminophen (TYLenol 325MG TAB) 650 mg Q6H PRN PO TEMPERATURE GREATER THAN 101.5 10/10/25 14:30 11/09/25 14:29 Al Hydroxide/Mg Hydroxide (MAALox PLUS 30ML) 30 ml Q6H PRN PO INDIGESTION 10/10/25 14:30 11/09/25 14:29 Alprazolam (XANax 0.5MG) 0.5 mg Q6H PRN PO ANXIETY/AGITATION 10/10/25 14:30 11/09/25 14:29 Artificial Tears (Artificial Tears) 1 DROP Q2H PRN OP DRY EYES 10/10/25 14:30 11/09/25 14:29 Benzocaine (Cepacol Sore Throat Lozenge) 1 each Q2H PRN MM SORE THROAT 10/10/25 14:30 11/09/25 14:29 Diphenhydramine HCl (BENAdryl CAP) 25 mg Q4H PRN PO MILD ITCHING/RASH 10/10/25 14:30 11/09/25 14:29 Diphenhydramine HCl (BENAdryl INJ) 25 mg Q6H PRN IV SEVERE ITCHING/RASH 10/10/25 14:30 11/09/25 14:29 Docusate Sodium (COLace 100MG CAP) 100 mg BID PRN PO CONSTIPATION 10/10/25 14:30 11/09/25 14:29 Famotidine (Pepcid 20mg Vial) 20 mg BID IV 10/10/25 21:00 10/10/25 14:32 DC Famotidine (Pepcid 20mg Tab) 20 mg Q48H PO 10/10/25 21:00 11/09/25 20:59 Guaifenesin (RobiTUSSin SUGAR-FREE 100 MG/ 5 ML UDCUP) 200 mg Q4H PRN PO COUGH 10/10/25 14:30 11/09/25 14:29 Guaifenesin/ Dextromethorphan (RobiTUSSin DM 200/20MG 10ML) 10 ml Q4H PRN PO COUGH 10/10/25 14:30 11/09/25 14:29 Lactulose (Constulose 20gm/ 30ml Udcup) 20 gm BID PRN PO CONSTIPATION 10/10/25 14:30 11/09/25 14:29 Lidocaine HCl/Al Hydroxide/Mg Hydroxide/ Dicyclomine HCl 20ML OR AD MAALOX P... Q6H PRN PO HEARTBURN 10/10/25 14:30 11/09/25 14:29 Loperamide HCl (Imodium) 2 mg Q6H PRN PO AFTER EACH LOOSE STOOL 10/10/25 14:30 11/09/25 14:29 Nitroglycerin (Nitrostat) 0.4 mg PROTOCOL PRN SL CHEST PAIN 10/10/25 14:30 11/09/25 14:29 Ondansetron HCl (zoFRAN 4MG INJ) 4 mg Q6H PRN IV NAUSEA/VOMITING 10/10/25 14:30 11/09/25 14:29 Pantoprazole Sodium (PROTonix 40MG INJ) 40 mg BID IVP 10/10/25 21:00 10/10/25 14:37 DC Polyethylene Glycol (MIRalax 3350 17 GM POWD.PACK) 17 gm DAILY PRN PO CONSTIPATION 10/10/25 14:30 11/09/25 14:29 Sodium Chloride 1,000 ml @ 75 mls/hr [id number] IV 10/10/25 16:00 11/09/25 15:59 Zolpidem Tartrate (AmbIEN) 5 mg HS PRN PO INSOMNIA 10/10/25 14:30 11/09/25 14:29 Diagnostics / Radiology: [COPY/PASTE HERE IF NO REPORTS PLEASE DELETE SECTION] Assessment: [ hematemesis Concern for Gi bleed anemia] Plan: [ clear fluids Hold xarelto plan for EGD on 10/12/25. KRISTY GONZALEZ Oct 10, 2025 15:56
[2025-10-10 16:13] LABS: APPEARANCE,URINE CLEAR (CLEAR); GLUCOSE, URINE (UA) 500 mg/dL (NEGATIVE); LEUKOCYTE ESTERASE ,URINE NEGATIVE Leu/uL (NEGATIVE); NITRATE,URINE NEGATIVE (NEGATIVE); OCCULT BLOOD,URINE MODERATE (NEGATIVE)
[2025-10-10 16:16] LABS: ADD UA MICROSCOPIC YES
[2025-10-10 18:15] VITALS: BP 98/52; PULSE 76; RESP 16; TEMP 99.2
[2025-10-10 19:20] VITALS: BP 98/59; PULSE 78; RESP 18; TEMP 98.3
[2025-10-10 20:00] VITALS: O2SAT 96
[2025-10-10] MEDS ORDERED: NON-FORMULARY MEDICATION 1 EACH (Ondansetron HCl 8 MG) PO PRN (20:30)
[2025-10-10] MEDS ORDERED: NON-FORMULARY MEDICATION 1 EACH (Fexofenadine/Pseudoephedrine (Allegra-D 24 Hour Tablet) 1 PO SCH (21:00)
[2025-10-10] MEDS: Duloxetine HCl 20 MG PO SCH (21:00)
[2025-10-10] MEDS ORDERED: FAMOTIDINE 20MG VIAL IV SCH (21:00)
[2025-10-10] MEDS: FAMOTIDINE 20MG TAB PO SCH (22:16)
[2025-10-10] MEDS: TIZANIDINE HCL 2 MG TABLET PO SCH (22:16)
[2025-10-10] MEDS: SUCRALFATE 1 GM TABLET PO SCH (22:16)
[2025-10-10] MEDS: SACUBITRIL/VALSARTAN 1 EACH TABLET PO SCH (22:17)
[2025-10-10] MEDS: BACLOFEN 10 MG TABLET PO SCH (22:17)
[2025-10-10 23:56] VITALS: BP 107/50; PULSE 75; RESP 18; TEMP 98.7
[2025-10-11] VITALS (35 sets, daily range): BP systolic 77–133; BP diastolic 45–97; PULSE 63–80; RESP 10–23; TEMP 98.1–98.4; O2SAT 94–98
[2025-10-11 04:32] LABS: NUCLEATED RED BLOOD CELLS 0.0 % (0.0-0.19); PLATELET COUNT (AUTO) 166.0 K/uL (130-400); RED BLOOD CELL COUNT(AUTO) 2.31 MIL/uL (4.50-6.20); RED CELL DISTRIBUTION WIDTH 15.2 % (11.0-15.5); WHITE BLOOD COUNT (AUTO) 5.0 K/uL (4.8-10.8)
[2025-10-11 04:45] LABS: CREATININE 1.5 mg/dL (0.5-1.3); GLOMERULAR FILTR. RATE CALC 45.0 mL/min (>90); GLUCOSE,RANDOM 78.0 mg/dL (70-105); SODIUM SERUM 141.0 mmol/L (136-145); UREA NITROGEN, BLOOD 48.0 mg/dL (7-18)
[2025-10-11] MEDS: SPIRONOLACTONE 25 MG TAB PO SCH (09:00)
[2025-10-11] MEDS: ATENOLOL 50 MG TABLET PO SCH (09:00)
[2025-10-11] MEDS: LORATAdine 10 mg 10 MG TABLET PO SCH (09:00)
--- NOTE | 2025-10-11 10:06 | PN ---
[facility] PROGRESS NOTE Date Patient Seen: Oct 11, 2025 Time of Visit: 10:06 Supervising Physician: Dr. Reyes Primary Care Physician: Dr. Lincoln Howard Outpatient Specialists: [ ] Inpatient Consults: TDS (GI) PROBLEM LIST: Upper GI bleed Hypotension Hematemesis Severe anemia secondary to the above ROSA Atrial fibrillation on Xarelto Diabetes type 2 Hypertension History of ppm/AICD BPH Hypercholesteremia Generalized anxiety disorder INTERVAL HISTORY: Patient evaluated at bedside this morning, his blood pressures at this time are 1:03 a.m. over 61, heart rate of 76 and the patient remains on room air. He is conversational, pleasant. Shortly after my visit it was reported by nursing staff that the patient's blood pressure had gone to about 60 systolic, patient was placed in his chair with legs elevated, blood pressure vladimir to 80 before beginning to decline again. Patient was bolused with 1 L of normal saline which assist with the patient's pressure, he was upgraded to ICU status for administration of Levophed to maintain adequate perfusion. Patient responded well to treatment, Levophed was titrated and weaned and the patient at this time is off pressors, blood pressure at this time is 1:14 a.m. over 61 with a heart rate of 77. Patient's SpO2 is 99 on room air. Patient's hemoglobin this morning was 7.1, transfusion orders replaced however on recheck patient's hemoglobin is 8.5, we will postpone transfusion at this time pending EGD in the morning. Vancomycin has been added to the patient's chart secondary to blood cultures positive for Gram-positive cocci. Plan Monitor H&H Monitor vital signs Continue fluids Continue Protonix b.i.d. Cefepime and vancomycin Levophed has been weaned Pending EGD in the a.m. Home medications continued Hold all anticoagulation Follow morning labs REVIEW OF SYSTEMS: 12 point ROS reviewed with patient. Pertinent positives mentioned above. Otherw ise negative. PHYSICAL EXAM: GENERAL: alert, weak, awake oriented x 3 HEENT: EOMI, Sclera non icteric, moist mucosa NECK: Supple, no JVD, trachea midline LUNGS: Clear breath sounds bilaterally. No wheezes HEART: Regular rate and rhythm. Normal S1 and S2, without murmurs ABD: Abdomen soft, nontender. Bowel sounds present EXT: No clubbing cyanosis or edema NEURO: Alert and oriented to person, follows commands Vital Signs (last 8hr) Date Time Temp Pulse Resp B/P (MAP) Pulse Ox O2 Delivery O2 Flow Rate FiO2 10/11/25 08:28 98.2 76 18 103/61 94 Room Air 10/11/25 03:20 98.4 76 18 97/58 97 Room Air 10/11/25 02:09 76 90/56 LABS: Hematology Labs: Test 10/11/25 03:45 Range/Units White Blood Count 5.0 # 4.8-10.8 K/uL Red Blood Count 2.31 L 4.50-6.20 MIL/uL Hemoglobin 7.1 L 14.0-18.0 g/dL Hematocrit 21.7 L 42-54 % Mean Corpuscular Volume 93.9 79-99 fL Mean Corpuscular Hemoglobin 30.7 27.0-33.0 pg Mean Corpuscular Hemoglobin Concent 32.7 32.0-36.0 g/dL Red Cell Distribution Width 15.2 11.0-15.5 % Platelet Count 166 130-400 K/uL Mean Platelet Volume 12.1 H 7.5-10.5 fL Nucleated Red Blood Cells 0.0 0.0-0.19 % Chemistry Labs: Test 10/11/25 03:45 10/10/25 13:49 10/10/25 12:23 Range/Units Sodium Level 141 136-145 mmol/L Potassium Level 3.5 3.5-5.1 mmol/L Chloride Level 109 101-111 mmol/L Carbon Dioxide Level 25 21-32 mmol/L Blood Urea Nitrogen 48 H 7-18 mg/dL Creatinine 1.5 H 0.5-1.3 mg/dL Glomerular Filtration Rate Calc 45 >90 mL/min Random Glucose 78 70-105 mg/dL Total Calcium 7.8 L 8.5-10.1 mg/dL Magnesium Level 2.00 1.80-2.40 mg/dL Troponin I High Sensitivity 88 *H 4-75 ng/L Lactic Acid Level 1.7 0.8-2.5 mmol/L Total Bilirubin 2.7 H 0.2-1.0 mg/dL Direct Bilirubin 2.3 H 0.0-0.3 mg/dL Aspartate Amino Transf (AST/SGOT) 56 H 10-37 U/L Alanine Aminotransferase (ALT/SGPT) 36 12-78 U/L Alkaline Phosphatase 216 H 50-136 U/L Total Protein 5.8 L 6.0-8.3 g/dL Albumin 2.3 L 3.5-5.0 g/dL Coagulation Labs: Test 10/10/25 12:23 Range/Units Prothrombin Time 15.2 H 9.6-11.6 SEC Prothromb Time International Ratio 1.49 H 0.85-1.15 Activated Partial Thromboplast Time 35.3 26.3-35.5 SEC DIAGNOSTICS / RADIOLOGY RESULTS: [ ] PLAN NEURO: Minimize central acting medications as possible. Maintain fall precautions, adequate lighting during the day PULMONARY: Supplemental 02 as needed. Maintain aspiration precautions at all times CARDIOVASCULAR: Follow hemodynamics. Vital signs per facility protocol GI & NUTRITION: Continue with nutritional support. Continue stool softeners and laxatives as needed. KIDNEYS & ELECTROLYTES: Strict monitoring of intake, output and overall fluid balance. Avoid nephrotoxic medications to the extent possible. Medications to be dosed according to renal function. Monitor electrolytes and replace as needed ENDOCRINE: Maintain blood glucose between 100-180 at all times. Hypoglycemia protocol in place INFECTIOUS DISEASE: Trend temperature, WBC and procalcitonin level Follow cultures, deescalate antibiotics as soon as possible. Panculture if new onset fever ONCOLOGY/HEMATOLOGY/COAGULATION: Monitor for s/s of bleeding Monitor hemoglobin, coagulation studies as needed SKIN: Pressure ulcer prevention per facility protocol Specialty mattress ORTHO/REHAB: Continue PT/OT Prophylaxis: Continue GI and DVT prophylaxis Code Status: Full Resuscitation Disposition: TBD Other: Total patient care time exceeds 35 minutes excluding all procedures. MIGEL VALADEZ PAC Oct 11, 2025 10:06
--- NOTE | 2025-10-11 10:25 | NUR ---
CALLED MIGEL OBREGON AND NOTIFIED THAT PATIENT ABLE TO ANSWER SIMPLE QUESTIONS BUT LETHARGIC COMPARED TO EARLIER AND PALE. BP 77/47, HR 63, 98% RA, IN NO RESPIRATORY DISTRESS. TORB GIVEN FOR 1L NS BOLUS AND INITIATED RIGHT AWAY AND PATIENT TO BE TRANSFERRED TO ICU FOR VASOPRESSORS SUPPORT.
[2025-10-11] MEDS: 0.9%NACL 1000ML 1,000 ML IV ONE (10:54)
--- NOTE | 2025-10-11 10:55 | NUR ---
PATIENT TRANSFERRED TO ICU 210, CARE ENDORSED TO KUN WILBURN. PATIENT MORE ALERT AND ABLE TO ANSWER QUESTIONS, BLOOD PRESSURE IMPROVING. SON UPDATED ON PATIENT'S STATUS AND PLAN OF CARE.
[2025-10-11] MEDS ORDERED: NOREPINEPHRIN 4MG/NS 250ML 250 ML IV SCH (11:00)
--- NOTE | 2025-10-11 11:16 | NUR ---
DCP: HOME Sw met with pt who states he lives at home with his Renata Castellanos [phone]. Pt reports he is able to complete ADLS on his own. Uses a walker to ambulate. No provider HH or HD services. PCP is Ginger Howard and uses [facility]. Pt states he will discharge home
--- NOTE | 2025-10-11 15:10 | NUR ---
REPEAT HGB RESULT REPEAT LEVEL 8.6... MIGEL OBREGON BENCHMARK MADE AWARE, HOLD BLOOD TRANSFUSION FOR NOW. PATIENT HEMODYNAMICALLY STABLE SEE [facility] FOR SPECIFICS.
[2025-10-11] MEDS ORDERED: VANCOMYCIN PROTOCOL PER PHARMACY IV SCH (16:00)
[2025-10-11] MEDS: VANCOMYCIN 1G/250ML KIT 250 ML IV SCH (16:28)
--- NOTE | 2025-10-11 16:53 | CONS ---
GASTROENTEROLOGY CONSULTATION NOTE Date of Consultation: Oct 11, 2025 Time of Consultation: 16:52 History of Present Illness: [85-year-old male patient who presented to the emergency room with complaints of coffee-ground emesis, and black tarry stools. We were consulted for coffee- ground emesis and upper GI bleed. Patient's hemoglobin has remained constant and 8.6, hematocrit 27.3, platelets 166. Wbc of 5.0. BUN 48, creatinine 1.5, calcium 7.8, albumin of 2.7, direct bilirubin 2.3, AST 56, ALT 36, alkaline phos 216. Total protein 5.8, and albumin 2.3. ] Review of Systems: CONSTITUTIONAL: No malaise or change in sensation of wellbeing. ENMT: No rhinorrhea, otorrhea, sinus pain, ear ache. CARDIOVASCULAR: No angina, palpitations, orthopnea or paroxysmal dyspnea. RESPIRATORY: No SOB. GASTROINTESTINAL: No abdominal pain, nausea, vomiting, diarrhea, hematemesis, melena or change in the patient's habitual bowel movements consistency/number. GENITOURINARY: No dysuria, hematuria or change in bladder continence. MUSCULOSKELETAL: No new muscle pain or decrease in muscular strength. No new joint swelling, redness or tenderness. SKIN: No new rash. Past Medical History: [noncontributory ] Past Surgical History: [ ] Past Social History: [ ] Family History: [ ] Coded Allergies: rosuvastatin (Unverified Allergy, Unknown, 10/10/25) Physical Exam: GEN: Awake, alert, oriented in person, time and place, and in no acute distress. HEENT: No rhinorrhea. Oral pharyngeal mucosa is pink, moist and within normal limits. CHEST: Lung auscultation revealed normal breath sounds bilaterally. CARDIAC:Heart sounds are regular. ABD: Soft, non-tender and not distended. No peritoneal signs on palpation. Normal bowel sounds. Last bm 10/11/25 EXT: No cyanosis or clubbing. No edema. SKIN: Intact. No rashes. NEURO: Alert and oriented to name, place and person.No focal motor deficits. Normal speech. Vital Sign (Last 24 Hours) 10/11/25 10/11/25 10/11/25 12:00 12:30 16:00 Temp 98.1 Pulse 77 Resp 18 B/P (MAP) 106/60 (75) Pulse Ox 96 O2 Delivery Room Air* O2 Flow Rate 0 FiO2 21 Intake & Output (last 24hrs) 10/10/25 10/10/25 10/11/25 15:00 23:00 07:00 Intake Total 1140.0 ml Balance 1140.0 ml Laboratory: [ ] Laboratory: Test 10/11/25 14:40 10/11/25 03:45 10/10/25 16:00 10/10/25 13:49 Range/Units Hemoglobin 8.6 #L 14.0-18.0 g/dL Hematocrit 27.3 #L 42-54 % White Blood Count 5.0 # 4.8-10.8 K/uL Red Blood Count 2.31 L 4.50-6.20 MIL/uL Mean Corpuscular Volume 93.9 79-99 fL Mean Corpuscular Hemoglobin 30.7 27.0-33.0 pg Mean Corpuscular Hemoglobin Concent 32.7 32.0-36.0 g/dL Red Cell Distribution Width 15.2 11.0-15.5 % Platelet Count 166 130-400 K/uL Mean Platelet Volume 12.1 H 7.5-10.5 fL Nucleated Red Blood Cells 0.0 0.0-0.19 % Sodium Level 141 136-145 mmol/L Potassium Level 3.5 3.5-5.1 mmol/L Chloride Level 109 101-111 mmol/L Carbon Dioxide Level 25 21-32 mmol/L Blood Urea Nitrogen 48 H 7-18 mg/dL Creatinine 1.5 H 0.5-1.3 mg/dL Glomerular Filtration Rate Calc 45 >90 mL/min Random Glucose 78 70-105 mg/dL Total Calcium 7.8 L 8.5-10.1 mg/dL Magnesium Level 2.00 1.80-2.40 mg/dL Urine Color YELLOW YELLOW Urine Appearance CLEAR CLEAR Urine pH 6.5 5.0-8.0 Urine Specific [facility] 1.014 1.001-1.031 Urine Protein NEGATIVE NEGATIVE mg/dL Urine Glucose (UA) 500 H NEGATIVE mg/dL Urine Ketones NEGATIVE NEGATIVE mg/dL Urine Occult Blood MODERATE H NEGATIVE Urine Nitrate NEGATIVE NEGATIVE Urine Bilirubin NEGATIVE NEGATIVE mg/dL Urine Urobilinogen 0.2 0.2-1.0 mg/dL Urine Leukocyte Esterase NEGATIVE NEGATIVE Huma/uL Urine RBC 51-100 H 0-1 /HPF Urine WBC 6-10 H 0-1 /HPF Urine Bacteria None None Seen /HPF Troponin I High Sensitivity 88 *H 4-75 ng/L Test 10/10/25 12:23 Range/Units Prothrombin Time 15.2 H 9.6-11.6 SEC Prothromb Time International Ratio 1.49 H 0.85-1.15 Activated Partial Thromboplast Time 35.3 26.3-35.5 SEC Lactic Acid Level 1.7 0.8-2.5 mmol/L Total Bilirubin 2.7 H 0.2-1.0 mg/dL Direct Bilirubin 2.3 H 0.0-0.3 mg/dL Aspartate Amino Transf (AST/SGOT) 56 H 10-37 U/L Alanine Aminotransferase (ALT/SGPT) 36 12-78 U/L Alkaline Phosphatase 216 H 50-136 U/L Total Protein 5.8 L 6.0-8.3 g/dL Albumin 2.3 L 3.5-5.0 g/dL Current Medications Medications (Trade) Dose Ordered Sig/Livan Route PRN Reason Start Time Stop Time Status Last Admin Dose Admin Acetaminophen (TYLenol 325MG TAB) 650 mg Q4H PRN PO MILD PAIN (1-3) 10/10/25 14:30 11/09/25 14:29 Acetaminophen (TYLenol 325MG TAB) 650 mg Q6H PRN PO TEMPERATURE GREATER THAN 101.5 10/10/25 14:30 11/09/25 14:29 Al Hydroxide/Mg Hydroxide (MAALox PLUS 30ML) 30 ml Q6H PRN PO INDIGESTION 10/10/25 14:30 11/09/25 14:29 Alprazolam (XANax 0.25MG) 0.25 mg HS PO 10/11/25 21:00 11/10/25 20:59 Alprazolam (XANax 0.5MG) 0.5 mg Q6H PRN PO ANXIETY/AGITATION 10/10/25 14:30 10/10/25 20:20 DC Artificial Tears (Artificial Tears) 1 DROP Q2H PRN OP DRY EYES 10/10/25 14:30 11/09/25 14:29 Atenolol (Atenolol) 100 mg DAILY PO 10/11/25 09:00 11/10/25 08:59 Baclofen (Baclofen) 10 mg BID PO 10/10/25 21:00 11/09/25 20:59 10/11/25 09:40 10 MG Benzocaine (Cepacol Sore Throat Lozenge) 1 each Q2H PRN MM SORE THROAT 10/10/25 14:30 11/09/25 14:29 Cefepime HCl (MAXipime 2 gm vial) 2 gm Q24H IVPB 10/11/25 10:00 10/21/25 09:59 10/11/25 10:20 2 GM Diphenhydramine HCl (BENAdryl CAP) 25 mg Q4H PRN PO MILD ITCHING/RASH 10/10/25 14:30 11/09/25 14:29 Diphenhydramine HCl (BENAdryl INJ) 25 mg Q6H PRN IV SEVERE ITCHING/RASH 10/10/25 14:30 11/09/25 14:29 Docusate Sodium (COLace 100MG CAP) 100 mg BID PRN PO CONSTIPATION 10/10/25 14:30 11/09/25 14:29 Famotidine (Pepcid 20mg Vial) 20 mg BID IV 10/10/25 21:00 10/10/25 14:32 DC Famotidine (Pepcid 20mg Tab) 20 mg Q48H PO 10/10/25 21:00 10/11/25 13:41 DC 10/10/25 22:16 20 MG Finasteride (PROscar 5 MG TAB) 5 mg DAILY PO 10/11/25 09:00 11/10/25 08:59 10/11/25 09:39 5 MG Furosemide (LASix 40MG TAB) 40 mg DAILY PO 10/11/25 09:00 11/10/25 08:59 Guaifenesin (RobiTUSSin SUGAR-FREE 100 MG/ 5 ML UDCUP) 200 mg Q4H PRN PO COUGH 10/10/25 14:30 11/09/25 14:29 Guaifenesin/ Dextromethorphan (RobiTUSSin DM 200/20MG 10ML) 10 ml Q4H PRN PO COUGH 10/10/25 14:30 11/09/25 14:29 Home Med (Home Medication) BID PO 10/10/25 21:00 11/09/25 20:59 Lactulose (Constulose 20gm/ 30ml Udcup) 20 gm BID PRN PO CONSTIPATION 10/10/25 14:30 11/09/25 14:29 Lidocaine HCl/Al Hydroxide/Mg Hydroxide/ Dicyclomine HCl 20ML OR AD MAALOX P... Q6H PRN PO HEARTBURN 10/10/25 14:30 11/09/25 14:29 Loperamide HCl (Imodium) 2 mg Q6H PRN PO AFTER EACH LOOSE STOOL 10/10/25 14:30 11/09/25 14:29 Loratadine (LORATAdine 10 mg) 10 mg DAILY PO 10/11/25 09:00 11/10/25 08:59 Lorazepam (AtiVAN) 0.5 mg Q6H PRN IVP ANXIETY/AGITATION 10/10/25 20:30 10/17/25 20:29 Miscellaneous Medication (Fexofenadine/ Pseudoephedrine (Cleo-D 24 Hour Tablet)) 1 each HS PO 10/10/25 21:00 10/10/25 20:35 DC Miscellaneous Medication (Ondansetron HCl ) 8 mg BID PRN PO NAUSEA/VOMITING 10/10/25 20:30 10/10/25 20:26 DC Nitroglycerin (Nitrostat) 0.4 mg PROTOCOL PRN SL CHEST PAIN 10/10/25 14:30 11/09/25 14:29 Norepinephrine 250 ml @ 0 mls/hr PROTOCOL IV 10/11/25 11:00 11/10/25 10:59 Ondansetron HCl (zoFRAN 4MG INJ) 4 mg Q6H PRN IV NAUSEA/VOMITING 10/10/25 14:30 11/09/25 14:29 Pantoprazole Sodium (PROTonix 40MG INJ) 40 mg BID IVP 10/10/25 21:00 10/10/25 14:37 DC Pantoprazole Sodium (PROTonix 40MG INJ) 40 mg BID IVP 10/11/25 21:00 11/10/25 20:59 Pantoprazole Sodium (PROTonix 40MG TAB) 40 mg DAILY PO 10/11/25 09:00 10/11/25 13:40 DC 10/11/25 09:40 40 MG Polyethylene Glycol (MIRalax 3350 17 GM POWD.PACK) 17 gm DAILY PRN PO CONSTIPATION 10/10/25 14:30 11/09/25 14:29 Sacubitril/ Valsartan (Entresto 24 Mg-26 Mg Tablet) 1 each BID PO 10/10/25 21:00 11/09/25 20:59 10/10/25 22:17 1 EACH Simvastatin (zoCOR) 20 mg HS PO 10/10/25 21:00 11/09/25 20:59 10/10/25 22:16 20 MG Sodium Chloride 1,000 ml @ 75 mls/hr [id number] IV 10/10/25 16:00 11/09/25 15:59 10/11/25 05:29 75 MLS/HR Spironolactone (Aldactone 25mg) 25 mg DAILY PO 10/11/25 09:00 11/10/25 08:59 Sucralfate (Carafate) 0.5 gm BID PO 10/10/25 21:00 11/09/25 20:59 10/11/25 09:40 0.5 GM Tamsulosin HCl (FloMAX) 0.4 mg DAILY PO 10/11/25 09:00 11/10/25 08:59 10/11/25 09:39 0.4 MG Tizanidine HCl (Tizanidine HCl) 4 mg BID PO 10/10/25 21:00 11/09/25 20:59 10/11/25 09:39 4 MG Tramadol HCl (UltRAM) 50 mg BID PRN PO MODERATE PAIN (4-6) 10/10/25 20:30 10/15/25 20:29 Vancomycin HCl 250 ml @ 125 mls/hr Q24H IV 10/11/25 16:00 10/21/25 15:59 10/11/25 16:28 125 MLS/HR Vancomycin HCl (Vancomycin Protocol) 1 each AD IV 10/11/25 16:00 10/25/25 15:59 Zolpidem Tartrate (AmbIEN) 5 mg HS PRN PO INSOMNIA 10/10/25 14:30 11/09/25 14:29 Diagnostics / Radiology: [COPY/PASTE HERE IF NO REPORTS PLEASE DELETE SECTION] Assessment: [ Hematemesis Concern for Gi bleed anemia] Plan: [ clear fluids NPO after midnight Hold Xarelto Plan for EGD on 10/12/25. Please call with questions, concerns, and change in clinical status. KRISTY GONZALEZ [facility] Oct 11, 2025 16:53
[2025-10-12] VITALS (20 sets, daily range): BP systolic 102–155; BP diastolic 44–84; PULSE 75–80; RESP 8–24; TEMP 97.6–98; O2SAT 94–97
[2025-10-12 02:08] LABS: NUCLEATED RED BLOOD CELLS 0.0 % (0.0-0.19); PLATELET COUNT (AUTO) 170.0 K/uL (130-400); RED BLOOD CELL COUNT(AUTO) 2.56 MIL/uL (4.50-6.20); RED CELL DISTRIBUTION WIDTH 15.0 % (11.0-15.5); WHITE BLOOD COUNT (AUTO) 4.6 K/uL (4.8-10.8)
[2025-10-12 02:20] LABS: CREATININE 1.3 mg/dL (0.5-1.3); GLOMERULAR FILTR. RATE CALC 54.0 mL/min (>90); GLUCOSE,RANDOM 168.0 mg/dL (70-105); SODIUM SERUM 140.0 mmol/L (136-145); UREA NITROGEN, BLOOD 29.0 mg/dL (7-18)
[2025-10-12] MEDS ORDERED: ZIPRASIDONE MESYLATE 20 MG/VIAL IM ONE (08:30)
[2025-10-12] MEDS ORDERED: GLYCOPYRROLATE 0.2 MG/ML 5 ML VIAL ONE (12:15)
[2025-10-12] MEDS ORDERED: LIDOCAINE PF 100MG/5ML (2%) SYRINGE 5ML ONE (12:15)
[2025-10-12] MEDS ORDERED: PANT40TA54 PO (13:25)
--- NOTE | 2025-10-12 13:29 | DS ---
[facility] DISCHARGE SUMMARY Date Patient Seen: Oct 12, 2025 Time of Visit: 13:26 Supervising Physician: Dr. Reyes Primary Care Physician: Dr. Lincoln Howard Outpatient Specialists: [ ] Inpatient Consults: TDS (GI) HOSPITAL COURSE: HPI (per admitting provider) Patient is an 85-year-old male with reports of general body weakness and one episode of hematemesis. Patient states that following the episode of hematemesis he reported to his GI clinic who recommended that he report to the emergency department for further workup and for hypotension. At the time of my assessment patient is tired, but able to participate in the exam, he is currently on room air, hemoglobin is 8.3, creatinine 1.9. Patient has had no further episodes of hematemesis on this admission. His blood pressure today is 96/49 with a heart rate of 75. LFTs are normal. GI team will be consulted for possible EGD in the morning. Patient will be placed on Protonix IV b.i.d. and remain NPO at this time. The patient was treated for the following problems: Patient was seen and evaluated on this admission for acute anemia secondary to coffee-ground emesis. Patient reported to his PCP who advised him to come to the emergency room for workup. Patient's H&H was monitored, no transfusion was required on this admission. On his 2nd day of admission patient had an hypotensive episode with systolics measured in the 60s. One L of normal saline was bolused and patient was initiated on Levophed which was quickly discontinued as the patient recovered his hemodynamics during the admission process to ICU. Patient remained in the ICU for the remainder of his admission, EGD was performed this morning with no acute bleeds found, recommendations to continue with Protonix b.i.d.. Patient's once daily prescription was halted and a new prescription for 40 mg twice daily sent to pharmacy. Patient advised to continue the remainder of his medication, signs and symptoms regarding GI bleed. Discussion with the patient's family regarding expectations and outlook. Follow up posted with specialties as indicated. ACTIVE PROBLEM LIST FOR THE HOSPITALIZATION: Upper GI bleed Hypotension Hematemesis Severe anemia secondary to the above ROSA CHRONIC PROBLEMS: continue previous management per PCP unless otherwise indicate d Atrial fibrillation on Xarelto Diabetes type 2 Hypertension History of ppm/AICD BPH Hypercholesteremia Generalized anxiety disorder [employer] FINDINGS/RECOMMENDATIONS: [ ] PROCEDURES: as mentioned above DISCHARGE MEDICATIONS: Pt hemodynamically stable and afebrile at time of discharge. PCP notified of patients admission, hospital course and discharge. PHYSICAL EXAM: GENERAL: alert, weak, awake oriented x 3 HEENT: EOMI, Sclera non icteric, moist mucosa NECK: Supple, no JVD, trachea midline LUNGS: Clear breath sounds bilaterally. No wheezes HEART: Regular rate and rhythm. Normal S1 and S2, without murmurs ABD: Abdomen soft, nontender. Bowel sounds present EXT: No clubbing cyanosis or edema NEURO: Alert and oriented to person, follows commands FOLLOW-UP: Follow-up with PCP in 2-3 days RECOMMENDATIONS: See Discharge Instructions This case was seen and discussed with my supervising physician. More than 30 minutes spent on discharge process, including evaluation of the patient, discussion with nursing staff, medication reconciliation and follow-up appointments MIGEL VALADEZ PAC Oct 12, 2025 13:29
--- NOTE | 2025-10-12 15:08 | NUR ---
Patient was discharged, all discharge documentation and personal items taken by patient and spouse. Patient informed to follow up with primary care provider in 3-[address] Saavedra in 2 weeks. New script sent to [facility] in [place]. IV was removed, patient transported out of facility via wheelchair by AKILA Correa.
== END 2025-10-12 15:24 | disposition home or self-care (01) | DRG 368 ==
LOC: EDH 12:01 → EDHIP 14:18 → 2AH 18:15 → OBSVTOIN 10-11 10:00 → 2BH 10-11 10:59
PROVIDERS: ADMIT Internal Medicine Critical Care Medicine; ATTEND Internal Medicine Critical Care Medicine
PROC: 0DJ08ZZ Inspection of Upper Intestinal Tract, Via Natural or Artificial Opening Endoscopic (ICD-10-PCS; principal; 2025-10-12)
DX: K20.91 Esophagitis, unspecified with bleeding (principal); K29.71 Gastritis, unspecified, with bleeding; D62 Acute posthemorrhagic anemia; N17.9 Acute kidney failure, unspecified; Z79.01 Long term (current) use of anticoagulants; E11.9 Type 2 diabetes mellitus without complications; I10 Essential (primary) hypertension; E78.00 Pure hypercholesterolemia, unspecified; F41.1 Generalized anxiety disorder; I48.91 Unspecified atrial fibrillation; N40.0 Benign prostatic hyperplasia without lower urinary tract symptoms; Z82.49 Family history of ischemic heart disease and other diseases of the circulatory system; Z83.3 Family history of diabetes mellitus; Z90.49 Acquired absence of other specified parts of digestive tract; Z95.810 Presence of automatic (implantable) cardiac defibrillator; I95.9 Hypotension, unspecified; Z79.899 Other long term (current) drug therapy
CPT/HCPCS: 36415; 36430; 43235; 71045; 80048; 80076; 81001; 82948; 83605; 83735; 84484; 85014; 85018; 85027; 85610; 85730; 86850; 86900; 86901; 86923; 87040; 87086; 87186; 93005; 99285; A4606; G0378; J0692; J0696; J2003; J2470; J2704; J3373; J3490; J7030; Q0163; A4215; A4222; A4223; A4620